=== PATIENT | female | born 1940 | race Caucasian/White ===

== ENCOUNTER 2017-01-10 13:36 | Emergency (ER) | payer MEDICARE ==
[2017-01-10 13:43] VITALS: O2SAT 97
--- NOTE | 2017-01-10 14:00 | ERPHSYRPT ---
- History of Present Illness Time Seen by Provider: 01/10/17 13:37 Source: patient Exam Limitations: clinical condition Patient Subjective Stated Complaint: ems states pt was found in her apartment feeling weak. Home Health concerned pt unable to take care of herself. Triage Nursing Assessment: pt pink, warm, dry. pt unkept. pt alert and oriented x3. hand garageman nad foot pushes equal and strong. Physician History: Pt. seen by home health nurse who called ambulance due to weakness and unable to ambulate. Denies any chest, abdominal or back pain. Denies any recent illnesses, no fever, chills, cough, no vomiting or diarrhea. States eating and drinking OK but accuchek done by EMS was >220. States walked with walker yesterday but unable to today. States PMD took her off Lasix due to "kidney problems" and now noticed increased pedal edema. Timing/Duration: today Severity: moderate Modifying Factors: Improves With: movement (WORSENS), rest (IMPROVES) Associated Symptoms: denies symptoms Allergies/Adverse Reactions: Sulfa (Sulfonamide Antibiotics) [Sulfa(Sulfonamide Antibiotics)] Allergy (Mild, Verified 07/16/16 16:10) Rash Home Medications: Aspirin [Aspirin EC] 81 mg PO DAILY 04/08/15 [History] Furosemide [Lasix] 40 mg PO DAILY 04/08/15 [History] Magnesium Oxide 400 mg [Mag-Ox 400] 400 mg PO DAILY 04/08/15 [History] Potassium Chloride 10 Meq Tab* [Klor Con 10 MEQ] 10 meq PO DAILY 04/08/15 [ History] Duloxetine HCl 30 mg [Cymbalta 30 MG Capsule] 60 mg PO DAILY 08/08/15 [ History] Aripiprazole 10 mg [Abilify 10 MG] 10 mg PO DAILY 07/16/16 [History] Insulin Aspart [Novolog Flexpen] 1 unit SQ UD 07/16/16 [History] Insulin Glargine [Lantus Insulin] 20 unit SQ HS 07/16/16 [History] Lisinopril 40 mg PO DAILY 07/16/16 [History] Simvastatin 20 mg PO DAILY 07/16/16 [History] Trazodone HCl 100 mg PO HS 07/16/16 [History] Hx Tetanus, Diphtheria Vaccination/Date Given: Yes (unknown) Hx Influenza Vaccination/Date Given: No Hx Pneumococcal Vaccination/Date Given: No Immunizations Up to Date: Yes - Review of Systems Constitutional: No Fever, No Chills Eyes: No Symptoms Ears, Nose, & Throat: No Symptoms Respiratory: No Cough, No Dyspnea Cardiac: Edema, No Chest Pain, No Palpitations, No Syncope Abdominal/Gastrointestinal: No Abdominal Pain, No Nausea, No Vomiting, No Diarrhea Genitourinary Symptoms: No Dysuria Musculoskeletal: No Back Pain, No Neck Pain Skin: No Rash Neurological: No Dizziness, No Focal Weakness, No Sensory Changes Psychological: No Symptoms Endocrine: No Symptoms All Other Systems: Reviewed and Negative - Past Medical History Pertinent Past Medical History: Yes Neurological History: Stroke, Other ENT History: Cataracts Cardiac History: High Cholesterol, Hypertension, Other Respiratory History: No Pertinent History Endocrine Medical History: Diabetes Type II Musculoskeletal History: Arthritis GI Medical History: No Pertinent History, Other History: Renal Disease Psycho-Social History: Depression Female Reproductive Disorders: No Pertinent History Other Medical History: 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,mild confusion x 1week, pacer,diarrhea x 3 wks, chronic kidney failure, - Past Surgical History Past Surgical History: Yes Cardiac: Cardiac Catheterization, Pacemaker Gastrointestinal: Appendectomy, Cholecystectomy, Colon Resection Musculoskeletal: Joint Replacement, Orthopedic Surgery Other Surgical History: BILATERAL KNEE REPLACE, LEFT HIP REPLACE , COLOSTOMY PLACED AND REVERSED, carpal tunnel - Social History Smoking Status: Current every day smoker How long have you smoked: 60 Exposure to second hand smoke: No Drug Use: none Patient Lives Alone: No - Female History Hx Now: No - Nursing Vital Signs Nursing Vital Signs: Initial Vital Signs Temperature 99.1 F Temperature Source Oral Pulse Rate 78 Respiratory Rate 20 Blood Pressure [] 136/75 Pain Intensity 0 - Physical Exam General Appearance: no apparent distress, alert Eye Exam: PERRL/EOMI, eyes nml inspection Ears, Nose, Throat Exam: normal ENT inspection, TMs normal, pharynx normal, moist mucous membranes Neck Exam: normal inspection, non-tender, supple, full range of motion Respiratory Exam: normal breath sounds, lungs clear, No respiratory distress Cardiovascular Exam: regular rate/rhythm, normal heart sounds, normal peripheral pulses Gastrointestinal/Abdomen Exam: soft, normal bowel sounds, No tenderness, No mass Back Exam: normal inspection, normal range of motion, No CVA tenderness, No vertebral tenderness Extremity Exam: normal range of motion, pelvis stable, pedal edema (+2-3 NON- PITTING EDEMA) Neurologic Exam: alert, oriented x 3, cooperative, secondary school special ed teacher II-XII nml as tested, normal mood/affect, nml cerebellar function, sensation nml, No motor deficits Skin Exam: normal color, warm, dry, No rash Lymphatic Exam: No adenopathy SpO2: 97 Oxygen Delivery: Room Air - Course Nursing assessment & vital signs reviewed: Yes EKG Interpreted by Me: RATE (65), Sinus Rhythm, NORMAL AXIS, NORMAL INTERVALS, Non-specific ST Changes - Radiology Exams Chest X-ray Interpretation: Teleradiologist Report Ordered Tests: Active Orders 24 hr Category Date Time Status Cath [Catheter-[place]] STAT Care 01/10/17 15:30 Active Cath for Specimen-Straight STAT Care 01/10/17 14:01 Active EKG-ER Only STAT Care 01/10/17 14:01 Active IV Insertion STAT Care 01/10/17 14:01 Active CHEST 1 VIEW (PORTABLE) Stat Exams 01/10/17 14:02 Completed BNP [NT PRO BNP] Stat Lab 01/10/17 13:45 Completed CBC W DIFF Stat Lab 01/10/17 13:45 Completed CMP Stat Lab 01/10/17 13:45 Completed TROPONIN Stat Lab 01/10/17 13:45 Completed TROPONIN Stat Lab 01/10/17 16:06 Ordered UA W/ MICROSCOPIC Stat Lab 01/10/17 13:45 Completed Medication Summary Discontinued Medications Generic Name Dose Route Start Last Admin Trade Name Dylanq PRN Reason Stop Dose Admin Furosemide 40 mg 01/10/17 15:13 01/10/17 15:29 Lasix 40 Mg/4 Ml IV 01/10/17 15:14 40 mg STAT ONE Administration Furosemide Confirm 01/10/17 15:21 Lasix 40 Mg/4 Ml Administered 01/10/17 15:22 Dose 40 mg .ROUTE .STK-MED ONE Lab/Rad Data: Laboratory Result Diagrams 01/10/17 13:45 01/10/17 13:45 Laboratory Results 01/10/17 01/10/17 01/10/17 Range/Units 13:45 13:45 13:45 WBC (4.0-10.5) K/mm3 RBC (4.1-5.4) M/mm3 Hgb (12.0-16.0) gm/dl Hct (35-47) % MCV (78-100) fl MCH (26-32) pg MCHC (32-36) g/dl RDW (11.5-14.0) % Plt Count (150-450) K/mm3 MPV (6-9.5) fl Gran % (36.0-66.0) % Lymphocytes % (24.0-44.0) % Monocytes % (0.0-12.0) % Eosinophils % (0.00-5.0) % Basophils % (0.0-0.4) % Basophils # (0-0.4) Sodium 144 (136-145) mEq/L Potassium 3.9 (3.5-5.1) mEq/L Chloride 108 H (98-107) mEq/L Carbon Dioxide 18.2 L (21-32) mEq/L Anion Gap 21.5 H (5-15) MEQ/L BUN 34 H (9-20) mg/dL Creatinine 2.26 H (0.55-1.30) mg/dl Estimated GFR 22 ML/MIN Glucose 227 H (70-110) MG/DL Calcium 9.5 (8.5-10.1) mg/dL Total Bilirubin 0.9 (0.2-1.0) mg/dL AST 79 H (15-37) U/L ALT 36 (12-78) U/L Alkaline Phosphatase 57 (46-116) U/L Troponin I 0.064 H* (0.000-0.056) ng/ml NT-Pro-B Natriuret Pep 1252 H (0-450) pg/ml Serum Total Protein 7.7 (6.4-8.2) gm/dL Albumin 4.2 (3.4-5.0) g/dL Ur Collection Type CATH Urine Color YELLOW (YELLOW) Urine Appearance CLEAR (CLEAR) Urine pH 5.5 (5-6) Ur Specific [place] 1.025 (1.005-1.025) Urine Protein 100 (Negative) Urine Glucose (UA) NEGATIVE (NEGATIVE) mg/dL Urine Ketones TRACE (NEGATIVE) Urine Nitrite NEGATIVE (NEGATIVE) Urine Bilirubin SMALL (NEGATIVE) Urine Urobilinogen 0.2 (0-1) mg/dL Urine WBC (Auto) NEGATIVE (NEGATIVE) Urine RBC (Auto) LARGE (0-5) [place]/ul Urine Microscopic RBC 2-5 (0-2) /HPF Urine Microscopic WBC 2-5 (0-5) /HPF Ur Epithelial Cells FEW (FEW) /HPF Amorphous Crystals MODERATE (NEGATIVE) /HPF Urine Bacteria FEW (NEGATIVE) /HPF Hyaline Casts 5-10 (0-2) /LPF Urine Yeast RARE (NEGATIVE) /HPF Specimen Received 01-10-17 1450 01/10/17 Range/Units 13:45 WBC 11.5 H (4.0-10.5) K/mm3 RBC 4.37 (4.1-5.4) M/mm3 Hgb 13.2 (12.0-16.0) gm/dl Hct 40.5 (35-47) % MCV 92.7 (78-100) fl MCH 30.2 (26-32) pg MCHC 32.6 (32-36) g/dl RDW 15.1 H (11.5-14.0) % Plt Count 266 (150-450) K/mm3 MPV 11.4 H (6-9.5) fl Gran % 86.7 H (36.0-66.0) % Lymphocytes % 6.0 L (24.0-44.0) % Monocytes % 7.0 (0.0-12.0) % Eosinophils % 0.1 (0.00-5.0) % Basophils % 0.2 (0.0-0.4) % Basophils # 0.02 (0-0.4) Sodium (136-145) mEq/L Potassium (3.5-5.1) mEq/L Chloride (98-107) mEq/L Carbon Dioxide (21-32) mEq/L Anion Gap (5-15) MEQ/L BUN (9-20) mg/dL Creatinine (0.55-1.30) mg/dl Estimated GFR ML/MIN Glucose (70-110) MG/DL Calcium (8.5-10.1) mg/dL Total Bilirubin (0.2-1.0) mg/dL AST (15-37) U/L ALT (12-78) U/L Alkaline Phosphatase (46-116) U/L Troponin I (0.000-0.056) ng/ml NT-Pro-B Natriuret Pep (0-450) pg/ml Serum Total Protein (6.4-8.2) gm/dL Albumin (3.4-5.0) g/dL Ur Collection Type Urine Color (YELLOW) Urine Appearance (CLEAR) Urine pH (5-6) Ur Specific [place] (1.005-1.025) Urine Protein (Negative) Urine Glucose (UA) (NEGATIVE) mg/dL Urine Ketones (NEGATIVE) Urine Nitrite (NEGATIVE) Urine Bilirubin (NEGATIVE) Urine Urobilinogen (0-1) mg/dL Urine WBC (Auto) (NEGATIVE) Urine RBC (Auto) (0-5) Cedrick/ul Urine Microscopic RBC (0-2) /HPF Urine Microscopic WBC (0-5) /HPF Ur Epithelial Cells (FEW) /HPF Amorphous Crystals (NEGATIVE) /HPF Urine Bacteria (NEGATIVE) /HPF Hyaline Casts (0-2) /LPF Urine Yeast (NEGATIVE) /HPF Specimen Received - Progress Progress: improved Progress Note: 01/10/17 15:43 PT GIVEN LASIX 40MG WITH MIN UO. STATES FEELS BETTER THOUGH Discussed with Dr.: Other (DR GUTIERREZ, [employer]BILE HOME SET UP PERSON, AGREED TO ACCEPT PT) Counseled pt/family regarding: lab results, diagnosis, rad results - Departure Time of Disposition: 16:21 Departure Disposition: Transfer ([facility]) Clinical Impression: Pedal edema, Weakness Condition: Stable Critical Care Time: No
--- NOTE | 2017-01-10 14:29 | XRAY ---
Indication: Short of breath. Comparison: July 16, 2016. Portable chest remains clear. Heart is not enlarged and again demonstrates left-sided dual-lead pacemaker. Vascularity normal. Bony thorax intact again with osteopenia and degenerative changes. Impression: Stable nonacute chest with chronic features.
[2017-01-10 14:45] LABS: BASOPHIL % 0.2 % (0.0-0.4); Eosinophil % 0.1 % (0.00-5.0); Granulocytes % 86.7 % (36.0-66.0); Mean Cell Volume 92.7 fl (78-100); Mean Corpuscular Hemoglobin 30.2 pg (26-32); Mean Platelet Volume 11.4 fl (6-9.5); Platelet Count 266 K/mm3 (150-450); Red Blood Count 4.37 M/mm3 (4.1-5.4); Red Cell Distribution Width 15.1 % (11.5-14.0); White Blood Count 11.5 K/mm3 (4.0-10.5)
[2017-01-10 14:57] LABS: Collection Type CATH; Ph 5.5 (5-6)
[2017-01-10 14:58] LABS: Bacteria FEW /HPF (NEGATIVE); COMPLETE URINE MICROSCOPIC? YES; Epithelial Cells FEW /HPF (FEW); Yeast RARE /HPF (NEGATIVE)
[2017-01-10] MEDS ORDERED: Lasix 40 MG/4 ML IV ONE (15:13)
[2017-01-10 15:14] LABS: ALBUMIN 4.2 g/dL (3.4-5.0); ANION GAP 21.5 MEQ/L (5-15); BILIRUBIN,TOTAL 0.9 mg/dL (0.2-1.0); Carbon Dioxide 18.2 mEq/L (21-32); Potassium 3.9 mEq/L (3.5-5.1); Total Protein 7.7 gm/dL (6.4-8.2)
[2017-01-10 15:16] LABS: TROPONIN 0.064 ng/ml (0.000-0.056)
[2017-01-10] MEDS ORDERED: Lasix 40 MG/4 ML ONE (15:21)
[2017-01-10 17:11] VITALS: BP 124/71; PULSE 63
== END 2017-01-10 17:12 | disposition short-term general hospital (02) ==
LOC: ED 13:36
DX: R60.9 Edema, unspecified (principal); R79.89 Other specified abnormal findings of blood chemistry; R53.1 Weakness; I10 Essential (primary) hypertension; E78.00 Pure hypercholesterolemia, unspecified; E11.9 Type 2 diabetes mellitus without complications; Z79.4 Long term (current) use of insulin; Z79.899 Other long term (current) drug therapy
CPT/HCPCS: 93041; 96374; 99285; 36000; 51702; 93005; 81000; 36415; 83880; 85025; 80053; 84484; 71010; P9612; J1940

== ENCOUNTER 2017-06-08 14:06 | Emergency (ER) | payer MEDICARE ==
--- NOTE | 2017-06-08 14:59 | ERPHSYRPT ---
- History of Present Illness Time Seen by Provider: 06/08/17 14:53 Historian: patient Exam Limitations: no limitations Patient Subjective Stated Complaint: Pt states "I was eating and I got a sudden horrible pain in my lower abdomen. I have had this swelling in my lower abdomen for quite some time now." Triage Nursing Assessment: PT alert and oriented X 3, skin pwd. Pt has softball size mass in lower left quadrant, bowel sounds present in all quadrants. Pt able to speak in full clear sentences, ambulates with assistance. Physician History: Pt states "I was eating and I got a sudden horrible pain in my lower abdomen. I have had this swelling in my lower abdomen for quite some time now." 77-year-old female had a history of colostomy reversal had a swelling on her left lower quadrant few years, today she started having a pain in that after eating her lunch so she came to the emergency room.denies any other symptoms. pain is relieved when patient was in emergency room. Timing/Duration: today Activities at Onset: none Abdominal Pain Onset Location: LLQ Pain Radiation: no radiation Severity of Pain-Max: mild Severity of Pain-Current: none Modifying Factors: Improves With: nothing Associated Symptoms: denies symptoms Allergies/Adverse Reactions: Sulfa (Sulfonamide Antibiotics) [Sulfa(Sulfonamide Antibiotics)] Allergy (Mild, Verified 01/10/17 16:42) Rash Home Medications: Aspirin [Aspirin EC] 81 mg PO DAILY 04/08/15 [History] Magnesium Oxide 400 mg [Mag-Ox 400] 400 mg PO DAILY 04/08/15 [History] Duloxetine HCl 30 mg [Cymbalta 30 MG Capsule] 60 mg PO DAILY 08/08/15 [ History] Simvastatin 20 mg PO DAILY 07/16/16 [History] Insulin Glargine,Hum.rec.anlog [Lantus Solostar] 10 unit SQ QID 01/10/17 [ History] Lisinopril 40 mg PO DAILY 06/08/17 [History] Hx Tetanus, Diphtheria Vaccination/Date Given: No Hx Influenza Vaccination/Date Given: Yes Hx Pneumococcal Vaccination/Date Given: Yes Immunizations Up to Date: Yes - Review of Systems Constitutional: No Symptoms Eyes: No Symptoms Ears, Nose, & Throat: No Symptoms Respiratory: No Symptoms Cardiac: No Symptoms Abdominal/Gastrointestinal: Abdominal Pain Genitourinary Symptoms: No Symptoms Musculoskeletal: No Symptoms - Past Medical History Pertinent Past Medical History: Yes Neurological History: Stroke, Other ENT History: Cataracts Cardiac History: High Cholesterol, Hypertension, Other Respiratory History: No Pertinent History Endocrine Medical History: Diabetes Type II Musculoskeletal History: Arthritis GI Medical History: No Pertinent History, Other History: Renal Disease Psycho-Social History: Depression Female Reproductive Disorders: No Pertinent History Other Medical History: 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,mild confusion x 1week, pacer,diarrhea x 3 wks, chronic kidney failure, - Past Surgical History Past Surgical History: Yes Cardiac: Cardiac Catheterization, Pacemaker Gastrointestinal: Appendectomy, Cholecystectomy, Colon Resection Musculoskeletal: Joint Replacement, Orthopedic Surgery Other Surgical History: BILATERAL KNEE REPLACE, LEFT HIP REPLACE , COLOSTOMY PLACED AND REVERSED, carpal tunnel - Social History Smoking Status: Former smoker How long have you smoked: 60 Exposure to second hand smoke: No Drug Use: none Patient Lives Alone: No - Female History Hx Last Menstrual Period: no more Hx Now: No - Nursing Vital Signs Nursing Vital Signs: Initial Vital Signs Temperature 98.1 F 06/08/17 14:14 Pulse Rate 62 06/08/17 14:14 Respiratory Rate 16 06/08/17 14:14 Blood Pressure 155/91 06/08/17 14:14 O2 Sat by Pulse Oximetry 97 06/08/17 14:14 Pain Scale Pain Intensity 0 - Physical Exam General Appearance: no apparent distress, alert Eye Exam: PERRL/EOMI, eyes nml inspection Ears, Nose, Throat Exam: normal ENT inspection, pharynx normal, moist mucous membranes Neck Exam: normal inspection, non-tender, supple, full range of motion Respiratory Exam: normal breath sounds, lungs clear, No respiratory distress Cardiovascular Exam: regular rate/rhythm, normal heart sounds Gastrointestinal/Abdomen Exam: soft, normal bowel sounds, other (left lower quadrant ventral abdominal wall hernia), No tenderness, No mass Back Exam: normal inspection, normal range of motion, No CVA tenderness, No vertebral tenderness Extremity Exam: normal inspection, normal range of motion, pelvis stable Neurologic Exam: alert, oriented x 3, cooperative, normal mood/affect, nml cerebellar function, sensation nml, No motor deficits Skin Exam: normal color, warm, dry SpO2: 97 Oxygen Delivery: Room Air - Course Nursing assessment & vital signs reviewed: Yes - Radiology Exams Abdomen X-ray Interpretation: Reviewed by me, Negative Ordered Tests: Active Orders 24 hr Category Date Time Status OBSTR/ACUTE ABDOMEN SERIES Stat Exams 06/08/17 14:48 Ordered - Progress Progress: improved Counseled pt/family regarding: diagnosis, need for follow-up, rad results - Departure Time of Disposition: 14:59 Departure Disposition: Home Clinical Impression: Hernia of anterior abdominal wall Condition: Stable Critical Care Time: No Referrals: ANGELA MAK [Primary Care Provider] - Instructions: Abdominal Pain-Adult Additional Instructions: You have a hernia in your abdominal wall, which may require surgical intervention, can be scheduled as an outpatient by your primary care physician. Please tell your long-term nursing personnel to make an arrangements with your primary care physician for an appointment with surgeon for hernia repair. Try to consume high-fiber diet without seeds to prevent further more pain symptoms.
[2017-06-08 16:16] VITALS: BP 124/60; PULSE 67; O2SAT 97
--- NOTE | 2017-06-08 20:49 | XRAY ---
Indication: Left abdominal swelling for 2 weeks. Left lower quadrant pain. Comparison: Portable chest January 10, 2017. 2 views of the abdomen demonstrates mild/moderate air distended bowel loops without air fluid leveling and moderate scattered colonic fecal debris. Findings obscure solid organs. Cholecystectomy clips. No free air. Osseous structures intact with mild osteopenia, spinal degenerative changes, and left total hip arthroplasty. Single AP chest again demonstrates normal heart and lungs with left-sided dual-lead pacemaker. Bony thorax intact again with osteopenia and degenerative changes. Impression: 1. Air distended bowel loops with diffuse fecal debris. Rule out ileus versus fecal stasis/impaction. 2. Stable nonacute 1 the chest.
== END 2017-06-08 16:15 | disposition home or self-care (01) ==
LOC: ED 14:06
DX: K43.9 Ventral hernia without obstruction or gangrene (principal)
CPT/HCPCS: 74022; 96360; 99283; 99284

== ENCOUNTER 2017-07-22 10:11 | Day surgery (SDC) | payer MEDICARE ==
--- NOTE | 2017-07-22 08:26 | HP ---
DATE OF SURGERY: 07/22/2017 HISTORY OF PRESENT ILLNESS: The patient is a 77 year-old who has history of ventral hernia. She has history of ostomy for labial, gluteal and perineal infection in the past. She had it taken down by Dr. May Culp in the past back in 2012. She had some aches, pains at hernia site. She had been having bowel movements. She had a CT scan left lower quadrant ventral hernia with some small bowel herniation, small hiatal hernia. Question whether she had volvulus. It sounds like she had a [id number] anastomosis when she had her resection in the past. She is in need of follow up colonoscopy first as she has not had one recently to rule out other etiologies of this area prior to proceeding with hernia repair and decide if she needs any intervention regarding her colon versus resection reanastomosis versus just repair of her hernia. PAST MEDICAL HISTORY: Diabetes mellitus type 2, hypercholesterolemia, hypertension, history of depression. She had perineal wound in the past and had diverting ostomy and later taken down where the ostomy was done in [place]. She had ostomy taken down by Dr. May Culp in the past at [facility]. MEDICATIONS: MiraLAX, loperamide, insulin, Milk of Magnesia, potassium chloride, Simvastatin, Wellbutrin, Zestril, aspirin, duloxetine, Furosemide, acetaminophen PRN. ALLERGIES: SULFA. FAMILY HISTORY: Negative regards to this problem. SOCIAL HISTORY: No smoking or alcohol abuse currently. REVIEW OF SYSTEMS: Twelve systems reviewed per admission assessment pertinent for as noted above. PHYSICAL EXAMINATION: GENERAL: No acute distress. HEENT: Sclerae nonicteric. NECK: No JVD. CHEST: Equal excursion, nonlabored breathing. CVS: Regular rate and rhythm. ABDOMEN: Soft. She had a hernia in the left abdomen prior stomal site otherwise no peritoneal signs. EXTREMITIES: No significant edema. NEURO: Alert, moving extremities symmetrically. No gross motor deficits noted. IMPRESSION: History of [id number] anastomosis. There is question whether volvulus although she is having bowel movements, not having evidence of obstruction. I feel she needs colonoscopy prior to considering hernia repair and possibly whether she needs any part of the colon removed in the future as she had the [id number] anastomosis in the past. General risk of bowel prep, risk of sedation, risk of bowel injury or perforation possibly requiring open procedure, risk of ongoing morbidity, risk of missed or nondiagnosis or incomplete exam possibly requiring barium enema, other studies or procedures, general risk of anesthesia or sedation, aches or pains but not limited to. She understands all the above but not limited to, will proceed with outpatient colonoscopy under MAC anesthesia at a later date, will proceed with hernia repair possible partial colectomy.
[2017-07-22] MEDS ORDERED: DIPRIVAN 200 MG/20 ML IV ONE (10:12)
[2017-07-22] MEDS ORDERED: Lactated Ringers 1,000 ML IV SCH (10:30)
[2017-07-22 14:51] VITALS: BP 159/91; PULSE 83; O2SAT 100
--- NOTE | 2017-07-22 15:43 | OP ---
SURGERY DATE/TIME: 07/22/2017 1329 PREOPERATIVE DIAGNOSES: 1) History of incarcerated left abdominal wall hernia, prior stomal takedown site. 2) Question of partial volvulus on CT scan. 3) Need for colonoscopy prior to repairing hernia and deciding whether to do partial colectomy or not. POSTOPERATIVE DIAGNOSES: 1) No active volvulus currently. 2) Very large patulous side to side distal left colon area anastomosis. 3) Diverticulosis. 4) Small internal and external hemorrhoids. 5) Small raised lesion versus hyperplastic lesion rectum. 6) Area of poor bowel prep limiting the exam. PROCEDURES: Colonoscopy. SURGEON: Dr. Ke Govea. ANESTHESIA: MAC. ESTIMATED BLOOD LOSS: Minimal. INDICATIONS: As noted above. Risks and benefits explained in detail but not limited to and consent obtained. DESCRIPTION OF PROCEDURE AND FINDINGS: The patient is taken to the operating room. MAC anesthesia introduced. After official time out and no disagreement with planned procedure, digital rectal exam did not reveal any rectal masses. She did have some small internal and external hemorrhoids. Video colonoscope inserted and passed up the rectum and to a very large, widely patent [id number] anastomosis from prior ostomy takedown. This area is quite patulous. There is no active volvulus at this point but given the very patulous anastomosis could happen in the future. The scope was able to be passed up through this around the descending colon, transverse colon to the cecum right lower quadrant. Prep was very poor with a large amount of liquidy semisolid stool very much limited the exam for small lesions. On withdrawal of the scope she had diverticulosis. There were no signs of any large polyps, masses or obstructing lesions. Again very poor prep limited the exam for small lesions. The scope pulled back to anastomotic area. It was decompressed as well as possible. At the top of the rectum small raised lesion versus hyperplastic lesion removed with hot biopsy forceps, good hemostasis noted. She had small internal and external hemorrhoids. The patient tolerated procedure well. There was no family available to discuss the findings with.
== END 2017-07-22 16:33 | disposition home or self-care (01) ==
LOC: SDC 10:11
PROVIDERS: ATTEND Surgery
PROC: 0DBP8ZX Excision of Rectum, Via Natural or Artificial Opening Endoscopic, Diagnostic (ICD-10-PCS; principal; 2017-07-22)
DX: K57.30 Diverticulosis of large intestine without perforation or abscess without bleeding (principal); K62.9 Disease of anus and rectum, unspecified; K64.4 Residual hemorrhoidal skin tags; K64.8 Other hemorrhoids; E11.9 Type 2 diabetes mellitus without complications; E78.00 Pure hypercholesterolemia, unspecified; I10 Essential (primary) hypertension; Z79.899 Other long term (current) drug therapy
CPT/HCPCS: 00810; 99100; J2704; L0625

== ENCOUNTER 2020-03-19 12:12 | Inpatient (IN) | payer MEDICARE ==
--- NOTE | 2020-03-19 18:57 | PCM.HP ---
History of Present Illness - Chief Complaint Chief Complaint: New onset of seizure today History of Present Illness: is a 80 year old female. [facility]ed developing [facility] at [facility]. Patient was seen in ER today and all the work-up was negative so patient was [facility] the [facility] where she developed another seizure and so patient was admitted second time as a direct admit. Patient is alert awake denies any other symptoms. - Review of Systems Constitutional: No Fever, No Chills Eyes: No Symptoms Ears, Nose, & Throat: No Symptoms Respiratory: No Cough, No Short Of Breath Cardiac: No Chest Pain, No Edema, No Syncope Abdominal/Gastrointestinal: No Abdominal Pain, No Nausea, No Vomiting, No Diarrhea Genitourinary Symptoms: No Dysuria Musculoskeletal: No Back Pain, No Neck Pain Skin: No Rash Neurological: Seizure, No Dizziness, No Focal Weakness, No Sensory Changes Psychological: No Symptoms Endocrine: No Symptoms Hematologic/Lymphatic: No Symptoms Immunological/Allergic: No Symptoms Medications & Allergies Home Medications: Home Medication List Magnesium Oxide 400 mg [Mag-Ox 400] 400 mg PO DAILY 04/08/15 [History Confirmed 03/19/20] Simvastatin 20 mg PO DAILY 07/16/16 [History Confirmed 03/19/20] Lisinopril 40 mg PO DAILY 06/08/17 [History Confirmed 03/19/20] Acetaminophen 325 mg [Tylenol 325 mg] 650 mg PO Q4H PRN PRN 07/16/17 [History Confirmed 03/19/20] Loperamide HCl 2 mg [Imodium 2 mg] 2 mg PO DAILY 07/16/17 [History Confirmed 03/19/20] Magnesium Hydroxide 30 ml [Milk of Magnesia 30 ml] 30 ml PO BID PRN 07/16/17 [History Confirmed 03/19/20] Polyethylene Glycol 3350 [Glycolax] 17 gm PO BID 07/16/17 [History Confirmed 03/19/20] Potassium Chloride 10 Meq Tab* [Klor Con 10 MEQ] 10 meq PO DAILY 07/16/17 [History Confirmed 03/19/20] Sodium Phosphate,[place]-Dibasic [Enema] 266 ml RC DAILY 07/16/17 [History Confirmed 03/19/20] Aspirin [Aspirin EC] 81 mg PO DAILY #0 11/27/17 [Rx Confirmed 03/19/20] Allergies/Adverse Reactions: Allergies Allergy/AdvReac Type Severity Reaction Status Date / Time Sulfa (Sulfonamide Allergy Mild Rash Verified 03/19/20 16:31 Antibiotics) [Sulfa(Sulfonamide Antibiotics)] - Past Medical History Past Medical History: Yes Neurological History: Alzheimer's Disease, Stroke, Other ENT History: Cataracts Cardiac History: High Cholesterol, Hypertension, Other Respiratory History: No Pertinent History Endocrine Medical History: Diabetes Type II Musculoskelatal History: Arthritis GI Medical History: No Pertinent History, Other History: Renal Disease Pyscho-Social History: Depression Reproductive Disorders: No Pertinent History Comment: 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, pacer,diarrhea x 3 wks, chronic kidney failure, - Past Surgical History Past Surgical History: Yes Neuro Surgical History: No Pertinent History Cardiac History: Cardiac Catheterization, Pacemaker Respiratory Surgery: No Pertinent History GI Surgical History: Appendectomy, Cholecystectomy, Colon Resection Genitourinary Surgical Hx: No Pertinent History Musculskeletal Surgical Hx: Joint Replacement, Orthopedic Surgery Female Surgical History: No Pertinent History Other Surgical History: BILATERAL KNEE REPLACE, LEFT HIP REPLACE , COLOSTOMY PLACED AND REVERSED, carpal tunnel - Social History Smoking Status: Former smoker How long have you smoked: 60 Exposure to second hand smoke: No Alcohol: None Drug Use: none - Physical Exam General Appearance: no apparent distress, alert Neurologic Exam: alert, oriented x 3, cooperative, normal mood/affect, nml cerebellar function, nml station & gait, sensation nml, No motor deficits, No sensory deficit, No disoriented, No confusion Eye Exam: PERRL/EOMI, eyes nml inspection Ears, Nose, Throat Exam: normal ENT inspection, TMs normal, pharynx normal, moist mucous membranes Neck Exam: normal inspection, non-tender, supple, full range of motion Respiratory Exam: normal breath sounds, lungs clear, No respiratory distress Cardiovascular Exam: regular rate/rhythm, normal heart sounds, normal peripheral pulses Gastrointestinal/Abdomen Exam: soft, normal bowel sounds, No tenderness, No mass Back Exam: normal inspection, normal range of motion, No CVA tenderness, No vertebral tenderness Extremity Exam: normal inspection, normal range of motion, pelvis stable Skin Exam: normal color, warm, dry, No rash Lymphatic Exam: No adenopathy Results - Other Procedures and Tests Respiratory Therapy 03/19/20 18:53 EEG 41-60 Minutes (Normal) ONCE Assessment/Plan (1) Seizure as late effect of cerebrovascular accident (CVA) Current Visit: Yes Status: Acute Assessment & Plan: Allergies Sulfa (Sulfonamide Antibiotics) [Sulfa(Sulfonamide Antibiotics)] Allergy (Mild, Verified 03/19/20 16:31) Rash Active Medications Sodium Chloride (Sodium Chloride 0.9% 1000 Ml) 1,000 mls @ 100 mls/hr IV .Q10H PJ Stop: 04/18/20 18:59 Insulin Human Lispro (Humalog) 0 unit SQ UD PRN PRN Reason: HYPERGLYCEMIA Stop: 04/18/20 18:47 Levetiracetam (Keppra 250 Mg) 500 mg PO BID PJ Stop: 04/18/20 21:59 Orders 03/19/20 18:48 Up With Assistance TID Neuro Checks Q4H Place in Observation ROUTINE Insulin Lispro [Humalog] See Dose Instructions SQ UD PRN 03/19/20 18:49 Accucheck ACHS Telemetry PROTOCOL Pulse Oximetry ROUTINE 03/19/20 18:50 Miscellaneous Nursing Order ROUTINE 03/19/20 18:53 EEG 41-60 Minutes (Normal) ONCE 03/19/20 19:00 NaCl 0.9% 1000 ml - 100 ml/Hr NaCl 0.9% 1000 ml [Sodium Chloride 0.9% 1000 ML] 1,000 ml IV 100 mls/hr 03/19/20 22:00 Levetiracetam 250 MG [Keppra 250 MG] 500 mg PO BID 03/20/20 04:00 CBC W DIFF AM.LAB CMP AM.LAB Code(s): I69.398 - OTHER SEQUELAE OF CEREBRAL INFARCTION; R56.9 - UNSPECIFIED CONVULSIONS (2) Acute on chronic renal insufficiency Current Visit: No Status: Acute Code(s): N28.9 - DISORDER OF KIDNEY AND URETER, UNSPECIFIED; N18.9 - CHRONIC KIDNEY DISEASE, UNSPECIFIED
[2020-03-19] MEDS ORDERED: ULTRAM 50 MG PO PRN (20:46)
[2020-03-19] MEDS ORDERED: Wellbutrin SR 150 MG ONE (21:54)
[2020-03-19] MEDS ORDERED: Keppra 250 MG ONE (21:55)
[2020-03-19] MEDS ORDERED: Keppra 250 MG PO SCH (22:00)
[2020-03-19] MEDS: XARELTO 10 MG TABLET PO ONE ×2 (22:33→23:32)
[2020-03-19] MEDS: Seroquel 100 MG PO SCH (22:33)
[2020-03-19] MEDS: ZOCOR 20MG PO SCH (22:33)
[2020-03-19] MEDS: Zestril 10 MG PO SCH (22:33)
[2020-03-19] MEDS: Klor Con 10 MEQ PO SCH (22:35)
[2020-03-19] MEDS: HUMALOG SQ PRN (22:36)
[2020-03-19] MEDS: Lantus Insulin SQ SCH (22:36)
[2020-03-19] MEDS ORDERED: Ativan 2 MG/1 ML VIAL IV ONE ×2 (22:55)
[2020-03-19] MEDS ORDERED: Ativan 2 MG/1 ML VIAL IV STA (22:56)
[2020-03-19] MEDS ORDERED: Keppra 500 MG/5 ML*** 500 MG in D5w 100ML Mini Bag 100 ML 100 ML IV ONE (23:02)
[2020-03-19 23:04] LABS: A-aADO2 10; ABG HEMOGLOBIN 11.1; ABG POTASSIUM 4.8 (3.5-5.1); ARTERIAL BLD GAS O2 SATURATION 99.1 % (95-100); ARTERIAL BLOOD GAS FIO2 32 %; ARTERIAL BLOOD GAS PCO2 37 mmHg (35-45); ARTERIAL BLOOD GAS PO2 172 mmHg (75-100); ARTERIAL BLOOD GAS pH 7.36 (7.35-7.45); CARBOXYHEMOGLOBIN 5.7 % THgb (0.0-6.9); HCO3- 20.9 (22-28); HGB O2 SAT 92.1 g/dF (94-100); Methhemoglobin 1.3 % (1.4-1.5); paO2 pAO1 0.95
[2020-03-19 23:05] LABS: ABG SITE RIGHT BRACHIAL
[2020-03-19] MEDS ORDERED: D5w 100ML Mini Bag 100 ML 100 ML IV ONE (23:10)
[2020-03-19] MEDS ORDERED: Keppra 500 MG/5 ML ONE (23:10)
[2020-03-19] MEDS: Wellbutrin XL 150 MG PO SCH (23:31)
[2020-03-19] MEDS ORDERED: Ativan 2 MG/1 ML VIAL IV PRN (23:33)
[2020-03-20] MEDS ORDERED: D5w 100ML Mini Bag 100 ML 100 ML IV ONE (04:22)
[2020-03-20 05:00] LABS: Absolute Neutrophil Ct (ANC) 4.17 (1.4-6.9); BASOPHIL % 0.2 % (0.0-0.4); Basophil (Absolute #) 0.01 (0-0.4); Eosinophil % 2.2 % (0.00-5.0); Eosinophil (Absolute #) 0.13 (0-0.5); Hematocrit 30.1 % (35-47); Hemoglobin 9.2 gm/dl (12.0-16.0); Lymphocyte (Absolute #) 1.22 (1.0-4.6); Lymphocytes % 20.2 % (24.0-44.0); Mean Cell Volume 97.4 fl (78-100); Mean Corpuscular Hemoglobin 29.8 pg (26-32); Mean Corpuscular Hgb Concent. 30.6 g/dl (32-36); Monocyte (Absolute #) 0.51 (0.0-1.3); Monocytes % 8.4 % (0.0-12.0); Platelet Count 159 K/mm3 (150-450); Red Blood Count 3.09 M/mm3 (4.1-5.4); Red Cell Distribution Width 15.2 % (11.5-14.0)
[2020-03-20] MEDS ORDERED: Keppra 500 MG/5 ML*** 500 MG in D5w 100ML Mini Bag 100 ML 100 ML IV ONE (05:20)
[2020-03-20 05:29] LABS: ALBUMIN 3.2 g/dL (3.5-5.0); ANION GAP 10.6 MEQ/L (5-15); BILIRUBIN,TOTAL 0.5 mg/dL (0.2-1.3); Calcium 8.1 mg/dL (8.4-10.2); Potassium 4.5 mmol/L (3.5-5.1); Total Protein 5.7 g/dL (6.3-8.2)
[2020-03-20] MEDS ORDERED: Sodium Chloride 0.9% 1000 ML 1,000 ML ONE (07:32)
[2020-03-20] MEDS: Sodium Chloride 0.9% 1000 ML 1,000 ML IV SCH ×3 (07:45→16:11)
[2020-03-20] MEDS ORDERED: GAVILAX PO PRN (08:27)
[2020-03-20] MEDS ORDERED: TYLENOL 325 MG PO PRN (08:27)
[2020-03-20] MEDS ORDERED: MILK OF MAGNESIA 30 ML PO SCH (08:30)
[2020-03-20] MEDS ORDERED: Miralax Powder 17GM PACKET PO PRN (08:32)
[2020-03-20] MEDS: Klor Con 10 MEQ PO SCH (09:47)
[2020-03-20] MEDS: Keppra 250 MG PO SCH (09:47)
[2020-03-20] MEDS: ECOTRIN 81 MG PO SCH (09:47)
[2020-03-20] MEDS: MAG-OX 400 PO SCH (09:48)
[2020-03-20] MEDS: Lopressor 25MG Tab PO SCH (09:48)
[2020-03-20] MEDS: Wellbutrin XL 150 MG PO SCH (09:48)
[2020-03-20] MEDS: Lasix 40 MG PO SCH (09:48)
[2020-03-20] MEDS: Zestril 10 MG PO SCH (09:48)
[2020-03-20] MEDS: Keppra 500 MG/5 ML*** 1,000 MG in D5w 100ML Mini Bag 100 ML 100 ML IV SCH ×2 (10:48→21:53)
--- NOTE | 2020-03-20 12:13 | PCM.NOTE ---
Date and Time: 03/20/20 1212 Subjective Assessment: 80 yr old female seen and examined this am. Patient is post ictal. Patient is sleepy but arousable. She was agitated with answering questions. Patient denies pain anywhere - Review of Systems All Other Systems: Unable due to condition Objective Exam General Appearance: obese, other (sleepy) Neurologic Exam: confusion, agitation, No oriented x 3, No cooperative Skin Exam: normal color, warm, dry, No rash Eye Exam: PERRL Ears, Nose, Throat Exam: moist mucous membranes Neck Exam: normal inspection Respiratory Exam: normal breath sounds, lungs clear, No chest tenderness, No diminished breath sounds, No crackles/rales, No wheezing Cardiovascular Exam: regular rate/rhythm, normal heart sounds, No murmur, No friction rub, No gallop Gastrointestinal/Abdomen Exam: soft, normal bowel sounds, No tenderness, No distention, No mass, No guarding, No rebound Extremity Exam: normal inspection, No pedal edema, No swelling, No tenderness OBJECTIVE DATA Vital Signs: Vital Signs - 24 hr Temp Pulse Resp BP Pulse Ox 03/20/20 11:58 99 F 69 18 105/54 98 03/20/20 07:34 98.1 F 72 20 110/56 97 03/20/20 06:46 97 03/20/20 04:00 99.2 F 70 24 118/58 98 03/20/20 00:02 98.7 F 88 12 138/60 95 03/19/20 22:55 98.7 F 88 12 138/60 95 03/19/20 20:50 98.6 F 72 22 125/68 98 03/19/20 20:30 96 Oxygen-Last 24 hours Oxygen Flowrate (L/min)-RT 3 Oxygen Flowrate (L/min)-RT 3 Pain Assessment - Last Documented Pain Scale Used FLACC Intake and Output: Intake & Output 03/18/20 03/19/20 03/20/20 03/21/20 11:59 11:59 11:59 11:59 Intake Total 709 Output Total 160 Balance 549 Weight 101 kg Lab Results: Accuchecks Date 03/20/20 Date 03/20/20 Date 03/19/20 Time 11:53 Time 07:57 Time 21:00 Accucheck Value: 132 Accucheck Value: 206 Lab Results-Last 24 Hours 03/19/20 03/20/20 03/20/20 Range/Units 23:00 04:59 04:59 WBC 6.0 (4.0-10.5) K/mm3 RBC 3.09 L (4.1-5.4) M/mm3 Hgb 9.2 L (12.0-16.0) gm/dl Hct 30.1 L (35-47) % MCV 97.4 (78-100) fl MCH 29.8 (26-32) pg MCHC 30.6 L (32-36) g/dl RDW 15.2 H (11.5-14.0) % Plt Count 159 (150-450) K/mm3 MPV 11.0 (7.5-11.0) fl Gran % 69.0 H (36.0-66.0) % Eos # (Auto) 0.13 (0-0.5) Absolute Lymphs (auto) 1.22 (1.0-4.6) Absolute Monos (auto) 0.51 (0.0-1.3) Lymphocytes % 20.2 L (24.0-44.0) % Monocytes % 8.4 (0.0-12.0) % Eosinophils % 2.2 (0.00-5.0) % Basophils % 0.2 (0.0-0.4) % Absolute Granulocytes 4.17 (1.4-6.9) Basophils # 0.01 (0-0.4) Puncture Site RIGHT BRACHIAL pCO2 37 (35-45) mmHg pO2 172 H* (75-100) mmHg Base Excess -4.0 L (-2.0-2.0) O2 Saturation 92.1 L (94-100) g/dF ABG pH 7.36 (7.35-7.45) ABG HCO3 20.9 L (22-28) ABG O2 Sat (Measured) 99.1 (95-100) % Tevin Test NOT APPLICABLE A-a Gradient 10 a/A Ratio 0.95 Hemoglobin 11.1 Carboxyhemoglobin 5.7 (0.0-6.9) % THgb Methemoglobin 1.3 L (1.4-1.5) % Potassium 4.8 4.5 (3.5-5.1) Temperature 37.0 C POC O2 Flow Rate 32 % Sodium 138 (137-145) mmol/L Chloride 107 (98-107) mmol/L Carbon Dioxide 25 (22-30) mmol/L Anion Gap 10.6 (5-15) MEQ/L BUN 29 H (7-17) mg/dL Creatinine 2.00 H (0.52-1.04) mg/dL Estimated GFR 25.4 ML/MIN Glucose 158 H (74-106) mg/dL Hemoglobin A1c (4.5-6.0) % Calcium 8.1 L (8.4-10.2) mg/dL Magnesium (1.6-2.3) mg/dL Total Bilirubin 0.50 (0.2-1.3) mg/dL AST 18 (14-36) U/L ALT 11 (0-35) U/L Alkaline Phosphatase 53 (38-126) U/L Serum Total Protein 5.7 L (6.3-8.2) g/dL Albumin 3.2 L (3.5-5.0) g/dL 03/20/20 03/20/20 Range/Units 04:59 09:38 WBC (4.0-10.5) K/mm3 RBC (4.1-5.4) M/mm3 Hgb (12.0-16.0) gm/dl Hct (35-47) % MCV (78-100) fl MCH (26-32) pg MCHC (32-36) g/dl RDW (11.5-14.0) % Plt Count (150-450) K/mm3 MPV (7.5-11.0) fl Gran % (36.0-66.0) % Eos # (Auto) (0-0.5) Absolute Lymphs (auto) (1.0-4.6) Absolute Monos (auto) (0.0-1.3) Lymphocytes % (24.0-44.0) % Monocytes % (0.0-12.0) % Eosinophils % (0.00-5.0) % Basophils % (0.0-0.4) % Absolute Granulocytes (1.4-6.9) Basophils # (0-0.4) Puncture Site pCO2 (35-45) mmHg pO2 (75-100) mmHg Base Excess (-2.0-2.0) O2 Saturation (94-100) g/dF ABG pH (7.35-7.45) ABG HCO3 (22-28) ABG O2 Sat (Measured) (95-100) % Tevin Test A-a Gradient a/A Ratio Hemoglobin Carboxyhemoglobin (0.0-6.9) % THgb Methemoglobin (1.4-1.5) % Potassium (3.5-5.1) Temperature C POC O2 Flow Rate % Sodium (137-145) mmol/L Chloride (98-107) mmol/L Carbon Dioxide (22-30) mmol/L Anion Gap (5-15) MEQ/L BUN (7-17) mg/dL Creatinine (0.52-1.04) mg/dL Estimated GFR ML/MIN Glucose (74-106) mg/dL Hemoglobin A1c 9.13 H (4.5-6.0) % Calcium (8.4-10.2) mg/dL Magnesium 2.3 (1.6-2.3) mg/dL Total Bilirubin (0.2-1.3) mg/dL AST (14-36) U/L ALT (0-35) U/L Alkaline Phosphatase (38-126) U/L Serum Total Protein (6.3-8.2) g/dL Albumin (3.5-5.0) g/dL Multi-Disciplinary Progress Notes: Multi-Disciplinary Progress Notes 03/19/20 23:31 Respiratory Note by Whit Nair THIS RT CALLED TO PT'S ROOM POST SEIZURE FOR INADEQUATE BREATHING. UPON ENTERING THE ROOM PT HAD SNORING RESPIRATIONS AND NOT RESPONDING TO VERBAL STIMULATION. AN ABG WAS DRAWN AT THIS TIME. Ph 7.36, CO2 37, PO2 172 ON 3L NASAL CANNULA. PLACED PT ON CO2 MONITOR. WILL CONTINUE TO MONITOR. Initialized on 03/19/20 23:31 - END OF NOTE Assessment/Plan (1) Seizure Current Visit: Yes Status: Acute Assessment & Plan: This is new for the patient. Most common cause at this age is post CVA however the stroke that was read out on CT appears old. Patient is on seroquel which lists seizures as a side effect. Unsure how long patient has been on this medication but we may need to be discontinue. Patient was started on keppra. Will need to check keppra level. She is post ictal during exam this am and appears very agitated. Mg level was checked also as potential cause for seizure but was wnl. Patient will get EEG tomorrow. She is on seizure precautions. Code(s): R56.9 - UNSPECIFIED CONVULSIONS (2) Hypomagnesemia Current Visit: Yes Status: Acute Assessment & Plan: Will continue on routine home meds Code(s): E83.42 - HYPOMAGNESEMIA (3) Hypertension Current Visit: Yes Status: Acute Assessment & Plan: will continue on routine home meds Code(s): I10 - ESSENTIAL (PRIMARY) HYPERTENSION
[2020-03-21] MEDS: Klor Con 10 MEQ PO SCH ×3 (00:36→21:46)
[2020-03-21] MEDS: Seroquel 100 MG PO SCH ×2 (00:36→21:46)
[2020-03-21] MEDS: Keppra 250 MG PO SCH (00:36)
[2020-03-21] MEDS: Wellbutrin XL 150 MG PO SCH ×3 (00:37→21:47)
[2020-03-21] MEDS: Zestril 10 MG PO SCH ×3 (00:38→21:46)
[2020-03-21] MEDS: ZOCOR 20MG PO SCH ×2 (00:38→21:46)
[2020-03-21] MEDS: Lantus Insulin SQ SCH ×2 (00:43→21:47)
[2020-03-21] MEDS: Sodium Chloride 0.9% 1000 ML 1,000 ML IV SCH ×3 (01:47→23:05)
[2020-03-21] MEDS: Zofran 4 MG/2 ML VIAL IV PRN ×2 (06:55→23:05)
[2020-03-21 09:45] LABS: Absolute Neutrophil Ct (ANC) 4.84 (1.4-6.9); BASOPHIL % 0.3 % (0.0-0.4); Basophil (Absolute #) 0.02 (0-0.4); Eosinophil % 1.4 % (0.00-5.0); Eosinophil (Absolute #) 0.09 (0-0.5); Hematocrit 33.5 % (35-47); Hemoglobin 10.4 gm/dl (12.0-16.0); Mean Cell Volume 96.8 fl (78-100); Mean Corpuscular Hemoglobin 30.1 pg (26-32); Mean Platelet Volume 10.6 fl (7.5-11.0); Monocyte (Absolute #) 0.42 (0.0-1.3); Monocytes % 6.5 % (0.0-12.0); Neutrophil % 74.8 % (36.0-66.0); Platelet Count 162 K/mm3 (150-450); Red Blood Count 3.46 M/mm3 (4.1-5.4); Red Cell Distribution Width 14.9 % (11.5-14.0); White Blood Count 6.5 K/mm3 (4.0-10.5)
[2020-03-21] MEDS: Lopressor 25MG Tab PO SCH (09:51)
[2020-03-21] MEDS: ECOTRIN 81 MG PO SCH (09:51)
[2020-03-21] MEDS: Lasix 40 MG PO SCH (09:51)
[2020-03-21] MEDS: MAG-OX 400 PO SCH (09:51)
[2020-03-21 09:55] LABS: ANION GAP 10.1 MEQ/L (5-15); Calcium 8.3 mg/dL (8.4-10.2); Creatinine 1 1.54 mg/dL (0.52-1.04); Potassium 4.4 mmol/L (3.5-5.1)
[2020-03-21] MEDS: Keppra 500 MG/5 ML*** 1,000 MG in D5w 100ML Mini Bag 100 ML 100 ML IV SCH ×2 (10:31→21:45)
--- NOTE | 2020-03-21 17:23 | PCM.NOTE ---
Date and Time: 03/21/201721 Subjective Assessment: doing better, no seizure - Review of Systems Constitutional: No Fever, No Chills Eyes: No Symptoms Ears, Nose, & Throat: No Symptoms Respiratory: No Cough, No Short Of Breath Cardiac: No Chest Pain, No Edema, No Syncope Abdominal/Gastrointestinal: No Abdominal Pain, No Nausea, No Vomiting, No Diarrhea Genitourinary Symptoms: No Dysuria Musculoskeletal: No Back Pain, No Neck Pain Skin: No Rash Neurological: No Dizziness, No Focal Weakness, No Sensory Changes Psychological: No Symptoms Endocrine: No Symptoms Hematologic/Lymphatic: No Symptoms Immunological/Allergic: No Symptoms Objective Exam General Appearance: no apparent distress, alert Neurologic Exam: alert, oriented x 3, cooperative, normal mood/affect, nml cerebellar function, sensation nml, No motor deficits Skin Exam: normal color, warm, dry Eye Exam: PERRL, EOMI, eyes nml inspection Ears, Nose, Throat Exam: normal ENT inspection, pharynx normal, moist mucous membranes Neck Exam: normal inspection, non-tender, supple, full range of motion Respiratory Exam: normal breath sounds, lungs clear, No respiratory distress Cardiovascular Exam: regular rate/rhythm, normal heart sounds Gastrointestinal/Abdomen Exam: soft, No tenderness, No mass Extremity Exam: normal inspection, normal range of motion Back Exam: normal inspection, normal range of motion, No CVA tenderness, No vertebral tenderness Pelvic Exam: deferred Rectal Exam: deferred OBJECTIVE DATA Vital Signs: Vital Signs - 24 hr Temp Pulse Resp BP Pulse Ox 03/21/20 15:50 97.7 F 64 22 131/71 96 03/21/20 12:00 98.4 F 62 20 135/67 94 L 03/21/20 07:22 98.8 F 81 22 142/74 96 03/21/20 07:16 92 L 03/21/20 06:56 96 03/21/20 04:30 98.0 F 72 18 138/64 96 03/20/20 23:54 98.2 F 66 14 152/63 96 03/20/20 20:00 97.9 F 61 128/59 97 03/20/20 18:50 93 L 03/20/20 17:25 94 L Pain Assessment - Last Documented Pain Intensity 0 Pain Scale Used FLACC Intake and Output: Intake & Output 03/19/20 03/20/20 03/21/2020 11:59 11:59 11:59 11:59 Intake Total 290 2700 10 Output Total 160 1300 Balance 549 1400 10 Weight 101 kg Lab Results: Accuchecks Date 03/21/20 Date 03/21/20 Date 03/21/20 Date 03/20/20 Time 16:30 Time 11:30 Time 07:30 Time 21:00 Accucheck Value: 125 Accucheck Value: 134 Accucheck Value: 127 Accucheck Value: 131 Lab Results-Last 24 Hours 03/21/20 03/21/20 Range/Units 09:20 09:20 WBC 6.5 (4.0-10.5) K/mm3 RBC 3.46 L (4.1-5.4) M/mm3 Hgb 10.4 L (12.0-16.0) gm/dl Hct 33.5 L (35-47) % MCV 96.8 (78-100) fl MCH 30.1 (26-32) pg MCHC 31.0 L (32-36) g/dl RDW 14.9 H (11.5-14.0) % Plt Count 162 (150-450) K/mm3 MPV 10.6 (7.5-11.0) fl Gran % 74.8 H (36.0-66.0) % Eos # (Auto) 0.09 (0-0.5) Absolute Lymphs (auto) 1.10 (1.0-4.6) Absolute Monos (auto) 0.42 (0.0-1.3) Lymphocytes % 17.0 L (24.0-44.0) % Monocytes % 6.5 (0.0-12.0) % Eosinophils % 1.4 (0.00-5.0) % Basophils % 0.3 (0.0-0.4) % Absolute Granulocytes 4.84 (1.4-6.9) Basophils # 0.02 (0-0.4) Sodium 139 (137-145) mmol/L Potassium 4.4 (3.5-5.1) mmol/L Chloride 108 H (98-107) mmol/L Carbon Dioxide 25 (22-30) mmol/L Anion Gap 10.1 (5-15) MEQ/L BUN 20 H (7-17) mg/dL Creatinine 1.54 H (0.52-1.04) mg/dL Estimated GFR 34.4 ML/MIN Glucose 121 H (74-106) mg/dL Calcium 8.3 L (8.4-10.2) mg/dL Multi-Disciplinary Progress Notes: Multi-Disciplinary Progress Notes 03/21/20 11:15 Case Management Note by Maria Luisa Mao INPATIENT RETURNING TO CO REQUIRE NEGATIVE COVID-19 RESULTS PRIOR TO RETURNING. COVID-19 TEST ENTERED AT THIS TIME. HS AWARE WILL MOVE PATIENT TO NEGATIVE PRESSURE ROOM FOR TESTING Initialized on 03/21/20 11:15 - END OF NOTE Assessment/Plan (1) Seizure as late effect of cerebrovascular accident (CVA) Current Visit: Yes Status: Acute Assessment & Plan: Chief Complaint Diagnosis New onset seizure, with 2 within 24 h Allergies Allergy/AdvReac Type Severity Reaction Status Date / Time Sulfa (Sulfonamide Allergy Mild Rash Verified 03/19/20 16:31 Antibiotics) [Sulfa(Sulfonamide Antibiotics)] Vital Signs (Last 24 hours) Temp Pulse Resp BP Pulse Ox 03/21/20 15:50 97.7 F 64 22 131/71 96 03/21/20 12:00 98.4 F 62 20 135/67 94 L 03/21/20 07:22 98.8 F 81 22 142/74 96 03/21/20 07:16 92 L 03/21/20 06:56 96 03/21/20 04:30 98.0 F 72 18 138/64 96 03/20/20 23:54 98.2 F 66 14 152/63 96 03/20/20 20:00 97.9 F 61 128/59 97 03/20/20 18:50 93 L 03/20/20 17:25 94 L Home Medications Medication Instructions Recorded Confirmed Last Taken Type Bupropion HCl [Bupropion HCl ER] 150 mg PO BID 03/19/20 03/19/20 Unknown History Furosemide 40 mg [Lasix 40 40 mg PO DAILY 03/19/20 03/19/20 Unknown History MG] Insulin Glargine,Hum.rec.anlog 10 units SQ HS 03/19/20 03/19/20 Unknown History [Lantus Solostar] Insulin Lispro [Humalog Kwikpen] 5 unit SQ DAILY 03/19/20 03/19/20 Unknown History Lisinopril 10 mg [Zestril 10 10 mg PO BID 03/19/20 03/19/20 Unknown History MG] Metoprolol Tartrate 25 mg PO DAILY 03/19/20 03/19/20 Unknown History Quetiapine Fumarate [Seroquel Xr] 100 mg PO HS 03/19/20 03/19/20 Unknown History Rivaroxaban [Xarelto] 15 mg PO EVENING MEAL 03/19/20 03/19/20 Unknown History Tramadol HCl [Ultram] 50 mg PO Q6H PRN PRN 03/19/20 03/19/20 Unknown History Current Medications Generic Name Dose Route Start Last Admin Trade Name Freq PRN Reason Stop Dose Admin Acetaminophen 650 mg 03/20/20 08:27 Tylenol 325 Mg PO 04/19/20 08:26 Q4H PRN PRN PAIN Aspirin 81 mg 03/20/20 10:00 03/21/20 09:51 Ecotrin 81 Mg PO 04/19/20 09:59 81 mg DAILY PJ Administration Bupropion HCl 150 mg 03/19/20 22:00 03/21/20 09:52 Wellbutrin Xl 150 Mg PO 04/18/20 21:59 150 mg BID PJ Administration Furosemide 40 mg 03/20/20 10:00 03/21/20 09:51 Lasix 40 Mg PO 04/19/20 09:59 40 mg DAILY PJ Administration Sodium Chloride 1,000 mls @ 100 mls/hr 03/19/20 19:00 03/21/20 12:38 Sodium Chloride 0.9% 1000 Ml IV 04/18/20 18:59 100 mls/hr .Q10H PJ Administration Levetiracetam 1,000 mg/ 110 mls @ 220 mls/hr 03/20/20 10:00 03/21/20 10:31 Dextrose IV 04/19/20 09:59 220 mls/hr BID PJ Administration Insulin Glargine 10 unit 03/19/20 22:00 03/21/20 00:43 Lantus Insulin SQ 04/18/20 21:59 10 unit HS PJ Administration Insulin Human Lispro 0 unit 03/19/20 18:48 03/19/20 22:36 Humalog SQ 04/18/20 18:47 2 unit UD PRN Administration HYPERGLYCEMIA Lisinopril 10 mg 03/19/20 22:00 03/21/20 09:51 Zestril 10 Mg PO 04/18/20 21:59 10 mg BID PJ Administration Lorazepam 1 mg 03/19/20 23:33 Ativan 2 Mg/1 Ml Vial IV 04/18/20 23:29 UD PRN SEIZURES Magnesium Hydroxide 30 ml 03/20/20 08:30 Milk Of Magnesia 30 Ml PO 04/19/20 08:29 BID PRN PJ Magnesium Oxide 400 mg 03/20/20 10:00 03/21/20 09:51 Mag-Ox 400 PO 04/19/20 09:59 400 mg DAILY PJ Administration Metoprolol Tartrate 25 mg 03/20/20 10:00 03/21/20 09:51 Lopressor 25mg Tab PO 04/19/20 09:59 25 mg DAILY PJ Administration Ondansetron HCl 4 mg 03/21/20 06:35 03/21/20 06:55 Zofran 4 Mg/2 Ml Vial IV 04/20/20 06:34 4 mg Q4H PRN PRN Administration NAUSEA/VOMITING Polyethylene Glycol 17 gm 03/20/20 08:32 Miralax Powder 17gm Packet PO 04/19/20 08:31 BID PRN PRN Potassium Chloride 10 meq 03/19/20 22:00 03/21/20 09:52 Klor Con 10 Meq PO 04/18/20 21:59 10 meq BID PJ Administration Quetiapine Fumarate 100 mg 03/19/20 22:00 03/21/20 00:36 Seroquel 100 Mg PO 04/18/20 21:59 Not Given HS PJ Simvastatin 20 mg 03/19/20 22:00 03/21/20 00:38 Zocor 20mg PO 04/18/20 21:59 Not Given HS PJ Tramadol HCl 50 mg 03/19/20 20:46 Ultram 50 Mg PO 04/18/20 20:45 Q6H PRN PRN PAIN Discontinued Medications Generic Name Dose Route Start Last Admin Trade Name Freq PRN Reason Stop Dose Admin Bupropion HCl Confirm 03/19/20 21:54 Wellbutrin Sr 150 Mg Administered 03/19/20 21:55 Dose 150 mg .ROUTE .STK-MED ONE Levetiracetam 500 mg/ Dextrose 105 mls @ 400 mls/hr 03/19/20 23:02 03/19/20 23:25 IV 03/19/20 23:17 400 mls/hr STAT ONE Administration Dextrose Confirm 03/19/20 23:10 D5w 100ml Mini Bag 100 Ml Administered 03/19/20 23:11 Dose 100 mls @ ud IV .STK-MED ONE Levetiracetam 500 mg/ Dextrose 105 mls @ 400 mls/hr 03/20/20 05:20 03/20/20 05:19 IV 03/20/20 05:35 400 mls/hr ONCE ONE Administration Dextrose Confirm 03/20/20 04:22 D5w 100ml Mini Bag 100 Ml Administered 03/20/20 04:23 Dose 100 mls @ ud IV .STK-MED ONE Sodium Chloride Confirm 03/20/20 07:32 Sodium Chloride 0.9% 1000 Ml Administered 03/20/20 07:33 Dose 1,000 mls @ ud .ROUTE .STK-MED ONE Levetiracetam 500 mg 03/19/20 22:00 03/19/20 22:33 Keppra 250 Mg PO 04/18/20 21:59 500 mg BID PJ Administration Levetiracetam Confirm 03/19/20 23:10 Keppra 500 Mg/5 Ml Administered 03/19/20 23:11 Dose 500 mg .ROUTE .STK-MED ONE Levetiracetam Confirm 03/19/20 21:55 Keppra 250 Mg Administered 03/19/20 21:56 Dose 500 mg .ROUTE .STK-MED ONE Levetiracetam 1,000 mg 03/20/20 10:00 03/21/20 00:36 Keppra 250 Mg PO 04/19/20 09:59 Not Given BID PJ Lorazepam 1 mg 03/19/20 22:55 03/20/20 07:56 Ativan 2 Mg/1 Ml Vial IV 03/19/20 22:56 Not Given STAT ONE Lorazepam 0.5 mg 03/19/20 22:56 03/20/20 07:56 Ativan 2 Mg/1 Ml Vial IV 03/19/20 22:57 Not Given ONCE STA Lorazepam 0.5 mg 03/19/20 22:55 03/20/20 07:45 Ativan 2 Mg/1 Ml Vial IV 03/19/20 22:56 Not Given STAT ONE Rivaroxaban 15 mg 03/19/20 22:00 03/19/20 23:32 Xarelto 10 Mg Tablet PO 03/19/20 22:01 Not Given ONCE ONE Intake & Output (Last 24 hours) 03/19/20 03/20/20 03/21/20 03/22/20 11:59 11:59 11:59 11:59 Intake Total 709 2700 10 Output Total 160 1300 Balance 549 1400 10 Weight 101 kg Microbiology Results (Last 24 hours) 03/20/20 07:05 Catherized Urine Culture - Preliminary GRAM POSITIVE ID AND SENSITIVITY PENDING Laboratory Results (Last 24 hours) 03/21/20 03/21/20 09:20 09:20 WBC 6.5 RBC 3.46 L Hgb 10.4 L Hct 33.5 L MCV 96.8 MCH 30.1 MCHC 31.0 L RDW 14.9 H Plt Count 162 MPV 10.6 Gran % 74.8 H Eos # (Auto) 0.09 Absolute Lymphs (auto) 1.10 Absolute Monos (auto) 0.42 Lymphocytes % 17.0 L Monocytes % 6.5 Eosinophils % 1.4 Basophils % 0.3 Absolute Granulocytes 4.84 Basophils # 0.02 Sodium 139 Potassium 4.4 Chloride 108 H Carbon Dioxide 25 Anion Gap 10.1 BUN 20 H Creatinine 1.54 H Estimated GFR 34.4 Glucose 121 H Calcium 8.3 L Orders (Last 24 hours) Category Date Time Status BMP Urgent Lab 03/21/20 09:20 Completed CBC W DIFF Urgent Lab 03/21/20 09:20 Completed Keppra Level [Levetiracetam] Routine Lab 03/22/20 04:00 Ordered BELINDA-COV-2 [employer] [facility] [BELINDA-CoV-2, JESUS MANUEL] Urgent Lab 03/21/20 Received Ondansetron HCl 4 mg/2 ml [Zofran 4 MG/2 ML VIAL] Med 03/21/20 06:35 Active 4 mg IV Q4H PRN PRN Patient Care Notes (Last 24 hours) 03/21/20 12:35 Nursing Note by Maria Luisa Mao S/W DR. DONIS REGARDING CHECKING A KEPPRA LEVEL AND PATIENT'S URINE CULTURE RESULTS. NEW ORDER FOR KEPPRA LEVEL IN THE AM DR. DONIS WISHES TO WAIT TO START PATIENT ON ANTIBIOTIC UNTIL FINAL CULTURE REPORT BACK. PER TRUNG AT [facility]- PATIENT WAS TREATED AT THE END OF JANUARY WITH ROCEPHIN 1GM IM DAILY X 10 DAYS(LAST DOSE WAS 03/02/2020) Initialized on 03/21/20 12:35 - END OF NOTE 03/21/20 12:15 (created 03/21/20 12:43) Nursing Note by Cristal Bowman Back from EEG. To rm 107 for lab covid test and completed. BAck to room 114. Resting in bed. Remains pleasantly confused. Initialized on 03/21/20 12:43 - END OF NOTE 03/21/20 12:13 (created 03/21/20 13:41) Nursing Note by Cheri Wahl patient is back from EEG test. Initialized on 03/21/20 13:41 - END OF NOTE 03/21/20 11:15 Case Management Note by Maria Luisa Mao INPATIENT RETURNING TO CO REQUIRE NEGATIVE COVID-19 RESULTS PRIOR TO RETURNING. COVID-19 TEST ENTERED AT THIS TIME. HS AWARE WILL MOVE PATIENT TO NEGATIVE PRESSURE ROOM FOR TESTING Initialized on 03/21/20 11:15 - END OF NOTE 03/21/20 10:43 Nursing Note by Cristal Bowman Patient for EEg. Patient remains pleasantly confused. Only oriented to self, but does follow commands slowly. Able to speak clearly now and brown fluids without difficulty. Initialized on 03/21/20 10:43 - END OF NOTE 03/21/20 09:40 Nursing Note by Cristal Bowman Unable to do MRI Brain d/t patient pacemaker. Dr Donis office notified. Initialized on 03/21/20 09:40 - END OF NOTE 03/21/20 09:06 Nursing Note by Cristal Bowman Dr called for update on patient and new orders recvd. CBC, BMP ordered and Radiolgy notified of MRI Brain (w & w/o contrast depending on creatine result). Initialized on 03/21/20 09:06 - END OF NOTE 03/21/20 07:10 SBAR Note by Skye Crawley SITUATION I am calling about SHILA MICHELLE the patient's code status is Full Code The problem I am calling about is: pt has had 2 episodes of emesis, in the last 2 hours, yellow bile. ASSESSMENT RECOMMENDATION Physician notified at 0710 New Orders received: new order received for Zofran input and administered. Vital Signs (Last 4 hours) Temp Pulse Resp BP Pulse Ox 03/21/20 06:56 96 03/21/20 04:30 98.0 F 72 18 138/64 96 Diagnois, Code Status Date of Arrival on Unit 03/19/20 Admitted From Direct Admit Diagnosis seizure Resucitation Status Full Code Intake and Output 24 Hours 03/21/20 03/22/20 06:59 06:59 Intake Total 2700 Output Total 1300 Balance 1400 Intake: Intake, Oral Amount 0 Intake, IV Amount 2604 Intake, IVPB: 96 Output: Output, Browning: 1300 Other: Number of Bowel Movements 0 Physical Assessment Anxiety Level Sleeping Mental Status Confused Patient Orientation Person Coma Scale Total 13 Breath Sounds [Anterior/ Clear Posterior Bilateral Throughout ] Cardiac Rhythm-[facility] Paced Bowel Sounds [All Quadrants] Present Abdomen Description Soft,Large,Non-Tender Urine Appearance Clear Urine Color Yellow Skin Color Maize Skin Temperature Warm PAST MEDICAL HISTORY Neurological History Alzheimer's Disease,Seizures,Stroke,Other ENT History Cataracts Endocrine Medical History Diabetes Type II Respiratory History No Pertinent History Cardiac History High Cholesterol,Hypertension,Other GI Medical History No Pertinent History,Gallbladder Disease,Other History Renal Disease Reproductive Disorders No Pertinent History Pyscho-Social History Depression Communicable Disease No Pertinent History Comment 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, pacer,diarrhea x 3 wks, chronic kidney failure, Diabetic (Last 24 Hours) Time 21:00 Time 16:08 Time 11:53 Time 07:57 Accucheck Value: 131 Accucheck Value: 133 Accucheck Value: 132 Blood Glucose Level: 158 Diet Order (Last 24 Hours) 03/20/20 Breakfast House Regular Diet Lab Results (Last 24 Hours) 03/20/20 Range/Units 09:38 Magnesium 2.3 (1.6-2.3) mg/dL Microbiology Results (Last 24 Hours) 03/20/20 01:00 Urine Culture - Pending Catherized Orders (Last 24 Hours) Category Date Time Status House Regular Diet Diet 03/20/20 Breakfast Active Acetaminophen 325 mg [Tylenol 325 mg] Med 03/20/20 08:27 Active 650 mg PO Q4H PRN PRN Aspirin EC 81 mg [Ecotrin 81 mg] Med 03/20/20 10:00 Active 81 mg PO DAILY Furosemide 40 mg [Lasix 40 MG] Med 03/20/20 10:00 Active 40 mg PO DAILY Levetiracetam 250 MG [Keppra 250 MG] Med 03/20/20 10:00 Active 1,000 mg PO BID Levetiracetam 500 MG/5 ML [Keppra 500 MG/5 ML] 1, Med 03/20/20 10:00 Active 000 mg D5w 100 ml [D5w 100ML Mini Bag 100 ML] 100 ml IV BID Magnesium Hydroxide 30 ml [Milk of Magnesia 30 ml Med 03/20/20 08:30 Active ] 30 ml PO BID PRN Magnesium Oxide 400 mg [Mag-Ox 400] Med 03/20/20 10:00 Active 400 mg PO DAILY Metoprolol Tartrate 25 mg [Lopressor 25MG Tab] Med 03/20/20 10:00 Active 25 mg PO DAILY Ondansetron HCl 4 mg/2 ml [Zofran 4 MG/2 ML VIAL] Med 03/21/20 06:35 Active 4 mg IV Q4H PRN PRN Polyethylene Glycol 3350 17 gm [Miralax Powder 17GM Med 03/20/20 08:32 Active PACKET] 17 gm PO BID PRN PRN Oxygen NASAL CANNULA 2 lpm RT 03/20/20 06:46 Active Nursing Notes (Last 12 hours) 03/20/20 20:07 Nursing Note by Adriana Rodriguez pt 85% on RA placed on 2L nc Addendum entered by Adriana Rodriguez 03/20/20 20:09: error entered on wrong pt Initialized on 03/20/20 20:07 - END OF NOTE Active Visit Medications Generic Name Dose Route Start Last Admin Trade Name Freq PRN Reason Stop Dose Admin Acetaminophen 650 mg 03/20/20 08:27 Tylenol 325 Mg PO 08/25/20 08:26 Q4H PRN PRN PAIN Aspirin 81 mg 03/20/20 10:00 03/20/20 09:47 Ecotrin 81 Mg PO 04/19/20 09:59 Not Given DAILY PJ Bupropion HCl 150 mg 03/19/20 22:00 03/21/20 00:37 Wellbutrin Xl 150 Mg PO 04/18/20 21:59 Not Given BID PJ Furosemide 40 mg 03/20/20 10:00 03/20/20 09:48 Lasix 40 Mg PO 04/19/20 09:59 Not Given DAILY PJ Sodium Chloride 1,000 mls @ 100 mls/hr 03/19/20 19:00 03/21/20 01:47 Sodium Chloride 0.9% 1000 Ml IV 04/18/20 18:59 100 mls/hr .Q10H PJ Administration Levetiracetam 1,000 mg/ 110 mls @ 220 mls/hr 03/20/20 10:00 03/20/20 21:53 Dextrose IV 04/19/20 09:59 220 mls/hr BID PJ Administration Insulin Glargine 10 unit 03/19/20 22:00 03/21/20 00:43 Lantus Insulin SQ 04/18/20 21:59 10 unit HS PJ Administration Insulin Human Lispro 0 unit 03/19/20 18:48 03/19/20 22:36 Humalog SQ 04/18/20 18:47 2 unit UD PRN Administration HYPERGLYCEMIA Levetiracetam 1,000 mg 03/20/20 10:00 03/21/20 00:36 Keppra 250 Mg PO 04/19/20 09:59 Not Given BID PJ Lisinopril 10 mg 03/19/20 22:00 03/21/20 00:38 Zestril 10 Mg PO 04/18/20 21:59 Not Given BID PJ Lorazepam 1 mg 03/19/20 23:33 Ativan 2 Mg/1 Ml Vial IV 04/18/20 23:29 UD PRN SEIZURES Magnesium Hydroxide 30 ml 03/20/20 08:30 Milk Of Magnesia 30 Ml PO 04/19/20 08:29 BID PRN PJ Magnesium Oxide 400 mg 03/20/20 10:00 03/20/20 09:48 Mag-Ox 400 PO 04/19/20 09:59 Not Given DAILY [facility] Metoprolol Tartrate 25 mg 03/20/20 10:00 03/20/20 09:48 Lopressor 25mg Tab PO 04/19/20 09:59 Not Given DAILY [facility] Ondansetron HCl 4 mg 03/21/20 06:35 03/21/20 06:55 Zofran 4 Mg/2 Ml Vial IV 04/20/20 06:34 4 mg Q4H PRN PRN Administration NAUSEA/VOMITING Polyethylene Glycol 17 gm 03/20/20 08:32 Miralax Powder 17gm Packet PO 04/19/20 08:31 BID PRN PRN Potassium Chloride 10 meq 03/19/20 22:00 03/21/20 00:36 Klor Con 10 Meq PO 04/18/20 21:59 Not Given BID [facility] Quetiapine Fumarate 100 mg 03/19/20 22:00 03/21/20 00:36 Seroquel 100 Mg PO 04/18/20 21:59 Not Given HS [facility] Simvastatin 20 mg 03/19/20 22:00 03/21/20 00:38 Zocor 20mg PO 04/18/20 21:59 Not Given HS [facility] Tramadol HCl 50 mg 03/19/20 20:46 Ultram 50 Mg PO 04/18/20 20:45 Q6H PRN PRN PAIN Home Medications Medication Instructions Recorded Confirmed Last Taken Type Bupropion HCl [Bupropion HCl ER] 150 mg PO BID 03/19/20 03/19/20 Unknown History Furosemide 40 mg [Lasix 40 40 mg PO DAILY 03/19/20 03/19/20 Unknown History MG] Insulin Glargine,Hum.rec.anlog 10 units SQ HS 03/19/20 03/19/20 Unknown History [Lantus Solostar] Insulin Lispro [Humalog Kwikpen] 5 unit SQ DAILY 03/19/20 03/19/20 Unknown Hi story Lisinopril 10 mg [Zestril 10 10 mg PO BID 03/19/20 03/19/20 Unknown History MG] Metoprolol Tartrate 25 mg PO DAILY 03/19/20 03/19/20 Unknown History Quetiapine Fumarate [Seroquel Xr] 100 mg PO HS 03/19/20 03/19/20 Unknown History Rivaroxaban [Xarelto] 15 mg PO EVENING MEAL 03/19/20 03/19/20 Unknown History Tramadol HCl [Ultram] 50 mg PO Q6H PRN PRN 03/19/20 03/19/20 Unknown History Initialized on 03/21/20 07:10 - END OF NOTE 03/20/20 20:07 Nursing Note by Adriana Rodriguez pt 85% on RA placed on 2L nc Addendum entered by Adriana Rodriguez 03/20/20 20:09: error entered on wrong pt Initialized on 03/20/20 20:07 - END OF NOTE Code(s): I69.398 - OTHER SEQUELAE OF CEREBRAL INFARCTION; R56.9 - UNSPECIFIED CONVULSIONS (2) Acute on chronic renal insufficiency Current Visit: No Status: Acute Code(s): N28.9 - DISORDER OF KIDNEY AND URETER, UNSPECIFIED; N18.9 - CHRONIC KIDNEY DISEASE, UNSPECIFIED
[2020-03-22] MEDS: Zestril 10 MG PO SCH ×2 (09:55→21:08)
[2020-03-22] MEDS: MAG-OX 400 PO SCH (09:55)
[2020-03-22] MEDS: ECOTRIN 81 MG PO SCH (09:56)
[2020-03-22] MEDS: Klor Con 10 MEQ PO SCH ×2 (09:56→21:08)
[2020-03-22] MEDS: Lopressor 25MG Tab PO SCH (09:56)
[2020-03-22] MEDS: Lasix 40 MG PO SCH (09:56)
[2020-03-22] MEDS: Wellbutrin XL 150 MG PO SCH ×2 (09:57→21:07)
[2020-03-22] MEDS ORDERED: D5w 100ML Mini Bag 100 ML 100 ML IV ONE (10:00)
[2020-03-22] MEDS: Keppra 500 MG/5 ML*** 1,000 MG in D5w 100ML Mini Bag 100 ML 100 ML IV SCH (10:00)
--- NOTE | 2020-03-22 12:47 | PCM.NOTE ---
Date and Time: 03/22/20 1240 Subjective Assessment: very drowsy, urine positive for E.Feacalis - Review of Systems Constitutional: No Fever, No Chills Eyes: No Symptoms Ears, Nose, & Throat: No Symptoms Respiratory: No Cough, No Short Of Breath Cardiac: No Chest Pain, No Edema, No Syncope Abdominal/Gastrointestinal: No Abdominal Pain, No Nausea, No Vomiting, No Diarrhea Genitourinary Symptoms: No Dysuria Musculoskeletal: No Back Pain, No Neck Pain Skin: No Rash Neurological: No Dizziness, No Focal Weakness, No Sensory Changes Psychological: No Symptoms Endocrine: No Symptoms Hematologic/Lymphatic: No Symptoms Immunological/Allergic: No Symptoms Objective Exam General Appearance: lethargy Neurologic Exam: No motor deficits Skin Exam: normal color, warm, dry Eye Exam: PERRL, EOMI, eyes nml inspection Ears, Nose, Throat Exam: normal ENT inspection, pharynx normal, moist mucous membranes Neck Exam: normal inspection, non-tender, supple, full range of motion Respiratory Exam: normal breath sounds, lungs clear, No respiratory distress Cardiovascular Exam: regular rate/rhythm, normal heart sounds Gastrointestinal/Abdomen Exam: soft, No tenderness, No mass Extremity Exam: normal inspection, normal range of motion Back Exam: normal inspection, normal range of motion, No CVA tenderness, No basil tebral tenderness Pelvic Exam: deferred Rectal Exam: deferred OBJECTIVE DATA Vital Signs: Vital Signs - 24 hr Temp Pulse Resp BP Pulse Ox 03/22/20 11:49 98.0 F 60 15 144/67 94 L 03/22/20 08:00 98.6 F 60 21 166/72 96 03/22/20 04:00 97.6 F 60 24 166/75 93 L 03/22/20 00:00 99.4 F 62 20 141/68 93 L 03/21/20 20:00 97.8 F 67 28 H 139/65 95 03/21/20 19:16 92 L 03/21/20 15:50 97.7 F 64 22 131/71 96 Pain Assessment - Last Documented Pain Intensity 0 Pain Scale Used [facility] Intake and Output: Intake & Output 03/20/20 03/21/20 03/22/20 03/23/20 11:59 11:59 11:59 11:59 Intake Total 709 2700 3057 Output Total 160 1300 1200 Balance 549 1400 1857 Weight 101 kg Lab Results: Accuchecks Date 03/21/20 Time 16:30 Accucheck Value: 166 Accucheck Value: 136 Accucheck Value: 96 Accucheck Value: 125 Multi-Disciplinary Progress Notes: Multi-Disciplinary Progress Notes 03/22/20 09:14 Case Management Note by Maria Luisa Mao NO CHANGE IN DC PLANS AT THIS TIME. PATIENT TO RETURN TO [facility] WHEN MEDICALLY READY AND COVID RESULT BACK Initialized on 03/22/20 09:14 - END OF NOTE Assessment/Plan (1) Seizure as late effect of cerebrovascular accident (CVA) Current Visit: Yes Status: Acute Assessment & Plan: will start keppra 250 mg po bid Code(s): I69.398 - OTHER SEQUELAE OF CEREBRAL INFARCTION; R56.9 - UNSPECIFIED CONVULSIONS (2) Acute on chronic renal insufficiency Current Visit: Yes Status: Chronic Code(s): N28.9 - DISORDER OF KIDNEY AND URETER, UNSPECIFIED; N18.9 - CHRONIC KIDNEY DISEASE, UNSPECIFIED
[2020-03-22] MEDS: Sodium Chloride 0.9% 1000 ML 1,000 ML IV SCH ×2 (13:08→23:17)
[2020-03-22] MEDS: HUMALOG SQ PRN (15:55)
[2020-03-22] MEDS: Keppra 250 MG PO SCH (21:07)
[2020-03-22] MEDS: Seroquel 100 MG PO SCH (21:07)
[2020-03-22] MEDS: ZOCOR 20MG PO SCH (21:08)
[2020-03-22] MEDS: Cipro 500 MG PO SCH (21:12)
[2020-03-22] MEDS: Lantus Insulin SQ SCH (21:12)
[2020-03-23] MEDS: Sodium Chloride 0.9% 1000 ML 1,000 ML IV SCH (07:29)
[2020-03-23] MEDS: Cipro 500 MG PO SCH (09:04)
[2020-03-23] MEDS: Klor Con 10 MEQ PO SCH (09:04)
[2020-03-23] MEDS: Keppra 250 MG PO SCH (09:05)
[2020-03-23] MEDS: MAG-OX 400 PO SCH (09:05)
[2020-03-23] MEDS: ECOTRIN 81 MG PO SCH (09:05)
[2020-03-23] MEDS: Lasix 40 MG PO SCH (09:05)
[2020-03-23] MEDS: Lopressor 25MG Tab PO SCH (09:05)
[2020-03-23] MEDS: Zestril 10 MG PO SCH (09:06)
[2020-03-23] MEDS: Wellbutrin XL 150 MG PO SCH (09:06)
[2020-03-23 11:50] VITALS: BP 119/78; PULSE 61; O2SAT 97
--- NOTE | 2020-03-23 11:52 | PCM.NOTE ---
Date and Time: 03/23/20 1151 Subjective Assessment: doing better, awaiting COVID 19 test results for her to be sent back to [place] - Review of Systems Constitutional: No Fever, No Chills Eyes: No Symptoms Ears, Nose, & Throat: No Symptoms Respiratory: No Cough, No Short Of Breath Cardiac: No Chest Pain, No Edema, No Syncope Abdominal/Gastrointestinal: No Abdominal Pain, No Nausea, No Vomiting, No Diarrhea Genitourinary Symptoms: No Dysuria Musculoskeletal: No Back Pain, No Neck Pain Skin: No Rash Neurological: No Dizziness, No Focal Weakness, No Sensory Changes Psychological: No Symptoms Endocrine: No Symptoms Hematologic/Lymphatic: No Symptoms Immunological/Allergic: No Symptoms Objective Exam General Appearance: no apparent distress, alert Neurologic Exam: alert, oriented x 3, cooperative, normal mood/affect, nml cerebellar function, sensation nml, No motor deficits Skin Exam: normal color, warm, dry Eye Exam: PERRL, EOMI, eyes nml inspection Ears, Nose, Throat Exam: normal ENT inspection, pharynx normal, moist mucous membranes Neck Exam: normal inspection, non-tender, supple, full range of motion Respiratory Exam: normal breath sounds, lungs clear, No respiratory distress Cardiovascular Exam: regular rate/rhythm, normal heart sounds Gastrointestinal/Abdomen Exam: soft, No tenderness, No mass Extremity Exam: normal inspection, normal range of motion Back Exam: normal inspection, normal range of motion, No CVA tenderness, No vertebral tenderness Pelvic Exam: deferred Rectal Exam: deferred OBJECTIVE DATA Vital Signs: Vital Signs - 24 hr Temp Pulse Resp BP Pulse Ox 03/23/20 11:50 98.6 F 61 20 119/78 97 03/23/20 07:29 98.5 F 66 20 120/56 93 L 03/23/20 04:00 97.9 F 80 20 107/57 94 L 03/23/20 00:00 97.9 F 62 20 126/56 96 03/22/20 19:43 97.7 F 69 15 115/56 94 L 03/22/20 16:00 98.7 F 60 16 133/78 96 Pain Assessment - Last Documented Pain Intensity 0 Pain Scale Used FLACC Intake and Output: Intake & Output 03/20/20 03/21/20 03/22/20 03/23/20 11:59 11:59 11:59 11:59 Intake Total 709 2700 3057 2060 Output Total 160 1300 1200 4250 Balance 549 1400 1857 -2190 Weight 101 kg 101 kg Lab Results: Accuchecks Date 03/23/20 Date 03/22/20 Date 03/22/20 Time 07:31 Time 21:00 Time 15:57 Accucheck Value: 133 Accucheck Value: 126 Accucheck Value: 358 Multi-Disciplinary Progress Notes: Multi-Disciplinary Progress Notes 03/23/20 11:20 Case Management Note by Maria Luisa Mao NO CHANGE IN DC PLANS- STILL AWAITING COVID TESTING RESULTS Initialized on 03/23/20 11:20 - END OF NOTE Assessment/Plan (1) Seizure as late effect of cerebrovascular accident (CVA) Current Visit: Yes Status: Acute Assessment & Plan: improved. Code(s): I69.398 - OTHER SEQUELAE OF CEREBRAL INFARCTION; R56.9 - UNSPECIFIED CONVULSIONS (2) Acute on chronic renal insufficiency Current Visit: Yes Status: Chronic Code(s): N28.9 - DISORDER OF KIDNEY AND URETER, UNSPECIFIED; N18.9 - CHRONIC KIDNEY DISEASE, UNSPECIFIED
[2020-03-23] MEDS ORDERED: Sodium Chloride 0.9% 10 ML FLUSH Syringe IV PRN (12:45)
[2020-03-23] MEDS ORDERED: Sodium Chloride 0.9% 10 ML FLUSH Syringe IV SCH (14:00)
== END 2020-03-23 15:26 | DRG 101 ==
LOC: MED SURG 12:12 → OBSVTOIN 03-20 12:12
PROVIDERS: ADMIT General Practice; ATTEND Family Medicine
DX: R56.9 Unspecified convulsions (principal); I69.398 Other sequelae of cerebral infarction; E78.00 Pure hypercholesterolemia, unspecified; E11.22 Type 2 diabetes mellitus with diabetic chronic kidney disease; I12.9 Hypertensive chronic kidney disease with stage 1 through stage 4 chronic kidney disease, or unspecified chronic kidney disease; N18.9 Chronic kidney disease, unspecified; E83.42 Hypomagnesemia; Z95.0 Presence of cardiac pacemaker; Z79.899 Other long term (current) drug therapy
CPT/HCPCS: 36415; 70450; 80048; 80053; 80177; 81001; 82375; 82803; 82962; 83036; 83605; 83735; 85025; 87077; 87086; 87186; 93005; 93041; 93268; 94250; 94760; 94770; 95812; 96360; 99291; G0378; U0003; 36000; 36600; 99284; J1817; J1953; J2405; A9270-GY

== ENCOUNTER 2020-03-19 16:12 | Emergency (ER) | payer MEDICARE ==
[2020-03-19] MEDS ORDERED: Sodium Chloride 0.9% 1000 ML 1,000 ML IV STA ×2 (16:14→17:17)
[2020-03-19 16:31] LABS: Absolute Neutrophil Ct (ANC) 3.18 (1.4-6.9); BASOPHIL % 0.5 % (0.0-0.4); Basophil (Absolute #) 0.03 (0-0.4); Eosinophil % 6.1 % (0.00-5.0); Eosinophil (Absolute #) 0.36 (0-0.5); Hematocrit 34.1 % (35-47); Hemoglobin 10.4 gm/dl (12.0-16.0); Lymphocyte (Absolute #) 1.77 (1.0-4.6); Lymphocytes % 29.9 % (24.0-44.0); Mean Cell Volume 96.3 fl (78-100); Mean Corpuscular Hemoglobin 29.4 pg (26-32); Mean Corpuscular Hgb Concent. 30.5 g/dl (32-36); Mean Platelet Volume 10.7 fl (7.5-11.0); Monocyte (Absolute #) 0.58 (0.0-1.3); Monocytes % 9.8 % (0.0-12.0); Neutrophil % 53.7 % (36.0-66.0); Platelet Count 180 K/mm3 (150-450); Red Blood Count 3.54 M/mm3 (4.1-5.4); Red Cell Distribution Width 15.4 % (11.5-14.0); White Blood Count 5.9 K/mm3 (4.0-10.5)
[2020-03-19 16:43] LABS: ALBUMIN 3.8 g/dL (3.5-5.0); ANION GAP 15.3 MEQ/L (5-15); BILIRUBIN,TOTAL 0.5 mg/dL (0.2-1.3); Calcium 8.5 mg/dL (8.4-10.2); Creatinine 1 2.38 mg/dL (0.52-1.04); Potassium 4.5 mmol/L (3.5-5.1); Total Protein 6.6 g/dL (6.3-8.2)
--- NOTE | 2020-03-19 16:48 | ERPHSYRPT ---
- History of Present Illness Time Seen by Provider: 03/19/20 16:47 Source: patient, EMS, [facility] records Exam Limitations: no limitations Patient Subjective Stated Complaint: pt brought in by ambulance for a possible seizure today. she was stanidng in doorway talking to a staff member when she started shaking and was lowered to ground Triage Nursing Assessment: pt alert, but confused to events which is normal for her,skin w/d/p. ,moves all ext well, has edema to lower legs that is normal. Physician History: pt brought in by ambulance for a possible seizure today. she was stanidng in doorway talking to a staff member when she started shaking and was lowered to ground patient is alert awake, in ER Timing/Duration: today Severity: mild Character of Deficits: none Deficits: no difficulties Baseline/Normal Cognition: alert oriented x 3 Current Cognition: alert oriented x 3 Baseline Gait: uses cane Associated Symptoms: denies symptoms Allergies/Adverse Reactions: Sulfa (Sulfonamide Antibiotics) [Sulfa(Sulfonamide Antibiotics)] Allergy (Mild, Verified 03/19/20 16:31) Rash Home Medications: Magnesium Oxide 400 mg [Mag-Ox 400] 400 mg PO DAILY 04/08/15 [History] Simvastatin 20 mg PO DAILY 07/16/16 [History] Lisinopril 40 mg PO DAILY 06/08/17 [History] Acetaminophen 325 mg [Tylenol 325 mg] 650 mg PO Q4H PRN PRN 07/16/17 [History] Loperamide HCl 2 mg [Imodium 2 mg] 2 mg PO DAILY 07/16/17 [History] Magnesium Hydroxide 30 ml [Milk of Magnesia 30 ml] 30 ml PO BID PRN 07/16/17 [History] Polyethylene Glycol 3350 [Glycolax] 17 gm PO BID 07/16/17 [History] Potassium Chloride 10 Meq Tab* [Klor Con 10 MEQ] 10 meq PO DAILY 07/16/17 [History] Sodium Phosphate,[place]-Dibasic [Enema] 266 ml RC DAILY 07/16/17 [History] Hx Tetanus, Diphtheria Vaccination/Date Given: No Hx Influenza Vaccination/Date Given: Yes Hx Pneumococcal Vaccination/Date Given: Yes Immunizations Up to Date: Yes Travel Risk - International Travel Have you traveled outside of the country in past 3 weeks: No - Coronavirus Screening Are you exhibiting any of the following symptoms?: No Close contact with a COVID-19 positive Pt in past 14-21 Days: No - Review of Systems Constitutional: No Fever, No Chills Eyes: No Symptoms Ears, Nose, & Throat: No Symptoms Respiratory: No Cough, No Dyspnea Cardiac: No Chest Pain, No Edema, No Syncope Abdominal/Gastrointestinal: No Abdominal Pain, No Nausea, No Vomiting, No Diarrhea Genitourinary Symptoms: No Dysuria Musculoskeletal: No Back Pain, No Neck Pain Skin: No Rash Neurological: No Dizziness, No Focal Weakness, No Sensory Changes Psychological: No Symptoms Endocrine: No Symptoms All Other Systems: Reviewed and Negative - Past Medical History Pertinent Past Medical History: Yes Neurological History: Alzheimer's Disease, Stroke, Other ENT History: Cataracts Cardiac History: High Cholesterol, Hypertension, Other Respiratory History: No Pertinent History Endocrine Medical History: Diabetes Type II Musculoskeletal History: Arthritis GI Medical History: No Pertinent History, Other History: Renal Disease Psycho-Social History: Depression Female Reproductive Disorders: No Pertinent History Other Medical History: 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, pacer,diarrhea x 3 wks, chronic kidney failure, - Past Surgical History Past Surgical History: Yes Neuro Surgical History: No Pertinent History Cardiac: Cardiac Catheterization, Pacemaker Respiratory: No Pertinent History Gastrointestinal: Appendectomy, Cholecystectomy, Colon Resection Genitourinary: No Pertinent History Musculoskeletal: Joint Replacement, Orthopedic Surgery Female Surgical History: No Pertinent History Other Surgical History: BILATERAL KNEE REPLACE, LEFT HIP REPLACE , COLOSTOMY PLACED AND REVERSED, carpal tunnel - Social History Smoking Status: Former smoker How long have you smoked: 60 Exposure to second hand smoke: No Drug Use: none Patient Lives Alone: No - Female History Hx Last Menstrual Period: psot - Nursing Vital Signs Nursing Vital Signs: Pain Scale Pain Intensity 0 - Gabriel Coma Scale Best Eye Response (Barnard): (4) open spontaneously Best Verbal Response (Barnard): (5) oriented Best Motor Response (Barnard): (6) obeys commands Gabriel Total: 15 - Physical Exam General Appearance: no apparent distress, alert Eye Exam: bilateral eye: PERRL, EOMI Ears, Nose, Throat Exam: normal ENT inspection, moist mucous membranes Neck Exam: normal inspection, non-tender, supple Respiratory: normal breath sounds, lungs clear, airway intact, No respiratory distress Cardiovascular: regular rate/rhythm, No edema Gastrointestinal: soft, No tenderness, No distention Back Exam: normal inspection Extremity Exam: normal inspection, No pedal edema Mental Status: alert, 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 Exam: tongue midline Coordination/Gait: normal finger to nose, normal gait Skin Exam: normal color, warm, dry, No rash - Course Nursing assessment & vital signs reviewed: Yes Rhythm Strip: Normal Sinus Rhythm - CT Exams Head CT Interpretation: Tele-radiologist Report (no acute changes) Ordered Tests: Active Orders 24 hr Category Date Time Status Accucheck STAT Care 03/19/20 16:14 Active Respiratory Care Faculty STAT Care 03/19/20 16:15 Active EKG-ER Only STAT Care 03/19/20 16:14 Active IV Insertion STAT Care 03/19/20 16:14 Active HEAD WITHOUT CONTRAST [CT] Stat Exams 03/19/20 16:15 Taken CBC W DIFF Stat Lab 03/19/20 16:28 Completed CMP Stat Lab 03/19/20 16:28 Completed Lactic Acid Stat Lab 03/19/20 16:40 Completed UA W/RFX UR CULTURE Stat Lab 03/19/20 17:27 Ordered Medication Summary Generic Name Dose Route Start Last Admin Trade Name Freq PRN Reason Stop Dose Admin Sodium Chloride 1,000 mls @ 999 mls/hr 03/19/20 17:17 Sodium Chloride 0.9% 1000 Ml IV 03/19/20 18:17 .Q1H1M STA Discontinued Medications Generic Name Dose Route Start Last Admin Trade Name Freq PRN Reason Stop Dose Admin Sodium Chloride 1,000 mls @ 999 mls/hr 03/19/20 16:14 03/19/20 16:53 Sodium Chloride 0.9% 1000 Ml IV 03/19/20 17:14 999 mls/hr .Q1H1M STA Administration Sodium Chloride Confirm 03/19/20 16:50 Sodium Chloride 0.9% 1000 Ml Administered 03/19/20 16:51 Dose 1,000 mls @ ud .ROUTE .K-MED ONE Lab/Rad Data: Laboratory Result Diagrams 03/19/20 16:28 03/19/20 16:28 Laboratory Results 03/19/20 03/19/20 03/19/20 Range/Units 16:40 16:28 16:28 WBC 5.9 (4.0-10.5) K/mm3 RBC 3.54 L (4.1-5.4) M/mm3 Hgb 10.4 L (12.0-16.0) gm/dl Hct 34.1 L (35-47) % MCV 96.3 (78-100) fl MCH 29.4 (26-32) pg MCHC 30.5 L (32-36) g/dl RDW 15.4 H (11.5-14.0) % Plt Count 180 (150-450) K/mm3 MPV 10.7 (7.5-11.0) fl Gran % 53.7 (36.0-66.0) % Eos # (Auto) 0.36 (0-0.5) Absolute Lymphs (auto) 1.77 (1.0-4.6) Absolute Monos (auto) 0.58 (0.0-1.3) Lymphocytes % 29.9 (24.0-44.0) % Monocytes % 9.8 (0.0-12.0) % Eosinophils % 6.1 H (0.00-5.0) % Basophils % 0.5 (0.0-0.4) % Absolute Granulocytes 3.18 (1.4-6.9) Basophils # 0.03 (0-0.4) Sodium 139 (137-145) mmol/L Potassium 4.5 (3.5-5.1) mmol/L Chloride 103 (98-107) mmol/L Carbon Dioxide 25 (22-30) mmol/L Anion Gap 15.3 H (5-15) MEQ/L BUN 33 H (7-17) mg/dL Creatinine 2.38 H (0.52-1.04) mg/dL Estimated GFR 20.8 ML/MIN Glucose 210 H (74-106) mg/dL Lactic Acid 1.9 (0.4-2.0) Calcium 8.5 (8.4-10.2) mg/dL Total Bilirubin 0.50 (0.2-1.3) mg/dL AST 18 (14-36) U/L ALT 12 (0-35) U/L Alkaline Phosphatase 67 (38-126) U/L Serum Total Protein 6.6 (6.3-8.2) g/dL Albumin 3.8 (3.5-5.0) g/dL - Progress Progress: improved Counseled pt/family regarding: lab results, diagnosis, need for follow-up, rad results - Departure Departure Disposition: Extended Care Facility Clinical Impression: Acute on chronic renal insufficiency Syncope Qualifiers: Syncope type: unspecified Qualified Code(s): R55 - Syncope and collapse Condition: Stable Critical Care Time: Yes Critical Care Time(excluding separately billable procedures): Critical 30-74 mins Referrals: ANGELA MAK [Primary Care Provider] - Outpatient Orders: COMPREHENSIVE/RENAL Time Frame: 1 Week, Facility: [facility], Location: LABORATORY
[2020-03-19] MEDS ORDERED: Sodium Chloride 0.9% 1000 ML 1,000 ML ONE (16:50)
[2020-03-19 17:30] VITALS: BP 128/67
[2020-03-19 17:39] LABS: Appearance CLEAR (CLEAR); Bacteria NONE SEEN /HPF (NEGATIVE); Bilirubin NEGATIVE (NEGATIVE); Blood NEGATIVE Ery/ul (0-5); Epithelial Cells RARE /HPF (FEW); Glucose NEGATIVE (NEGATIVE); Ketones NEGATIVE (NEGATIVE); Leukocyte Esterase SMALL (NEGATIVE); Mucus SLIGHT /HPF (NEGATIVE); Nitrite NEGATIVE (NEGATIVE); Protein,Urine Dip NEGATIVE (Negative); RBC 0-2 /HPF (0-2); Specific Gravity 1.012 (1.005-1.025); Urobilinogen NEGATIVE mg/dL (0-1); WBC 0-2 /HPF (0-5)
[2020-03-19 17:51] VITALS: PULSE 68; O2SAT 98
--- NOTE | 2020-03-19 20:07 | XRAY ---
Indication: New onset seizure. Multiple contiguous axial images obtained through the head without contrast. Comparison: None Age-appropriate global atrophy, mild periventricular degenerative micro-ischemia bilaterally, and small focus old infarct right vertex posteriorly. No acute intracranial hemorrhage, abnormal extra-axial fluid collection, or mass effect. Fourth ventricle is midline without hydrocephalus. Bony calvarium intact. Visualized paranasal sinuses and mastoid air cells are clear. Impression: Nonacute senile brain with small old infarct right vertex. Comment: Preliminary interpretation was made by [facility]. No critical discrepancy.
== END 2020-03-19 17:51 ==
LOC: ED 16:12
DX: R55 Syncope and collapse (principal); N18.9 Chronic kidney disease, unspecified; Z79.899 Other long term (current) drug therapy; E78.00 Pure hypercholesterolemia, unspecified; I10 Essential (primary) hypertension; E11.9 Type 2 diabetes mellitus without complications
CPT/HCPCS: 36000; 36415; 70450; 80053; 81001; 82962; 83605; 85025; 93005; 93041; 96360; 99284; 99291

== ENCOUNTER 2020-10-18 14:10 | Observation (INO) | payer MEDICARE ==
[2020-10-18 14:23] LABS: A-aADO2 20; ABG POTASSIUM 3.1 (3.5-5.1); ARTERIAL BLD GAS O2 SATURATION 99.4 % (95-100); ARTERIAL BLOOD GAS BASE EXCESS 10.8 (-2.0-2.0); ARTERIAL BLOOD GAS FIO2 21 %; ARTERIAL BLOOD GAS PCO2 39 mmHg (35-45); ARTERIAL BLOOD GAS PO2 81 mmHg (75-100); CARBOXYHEMOGLOBIN 2.1 % THgb (0.0-6.9); HCO3- 34.1 (22-28); HGB O2 SAT 96.5 g/dF (94-100); Methhemoglobin 0.9 % (1.4-1.5)
[2020-10-18 14:24] LABS: ABG HEMOGLOBIN 7.6; ARTERIAL BLOOD GAS pH 7.55 (7.35-7.45)
[2020-10-18 14:25] LABS: ABG SITE RIGHT BRACHIAL
[2020-10-18] MEDS ORDERED: Sodium Chloride 0.9% 1000 ML 1,000 ML IV SCH (14:45)
--- NOTE | 2020-10-18 14:53 | XRAY ---
Indication: Pneumonia. Comparison: June 08, 2017. Portable chest remains clear with chronic mild right hemidiaphragm elevation. Heart is not enlarged for AP portable technique with stable left pacemaker. Bony thorax intact again with mild osteopenia and degenerative changes. Impression: Continued nonacute chest with chronic features.
[2020-10-18] MEDS ORDERED: Sodium Chloride 0.9% 1000 ML 1,000 ML ONE (15:01)
--- NOTE | 2020-10-18 15:17 | XRAY ---
Indication: Altered mental status. Multiple contiguous axial images obtained through the head without contrast. Comparison: March 19, 2020. Again age-appropriate global atrophy, mild periventricular degenerative micro-ischemia, and small focus old infarct right vertex posteriorly. No acute intracranial hemorrhage, abnormal extra-axial fluid collection, or mass effect. Fourth ventricle is midline without hydrocephalus. Bony calvarium intact. Visualized paranasal sinuses and mastoid air cells are clear. Impression: Continued nonacute senile brain with small old infarct right vertex.
[2020-10-18 15:29] LABS: BASOPHIL % 0.3 % (0.0-0.4); Basophil (Absolute #) 0.03 (0-0.4); Eosinophil % 1.7 % (0.00-5.0); Hematocrit 25.2 % (35-47); Hemoglobin 7.3 gm/dl (12.0-16.0); Lymphocyte (Absolute #) 2.01 (1.0-4.6); Lymphocytes % 17.3 % (24.0-44.0); Mean Cell Volume 97.3 fl (78-100); Mean Corpuscular Hemoglobin 28.2 pg (26-32); Mean Platelet Volume 9.4 fl (7.5-11.0); Monocyte (Absolute #) 1.08 (0.0-1.3); Monocytes % 9.3 % (0.0-12.0); Neutrophil % 71.4 % (36.0-66.0); Platelet Count 401 K/mm3 (150-450); Red Blood Count 2.59 M/mm3 (4.1-5.4); Red Cell Distribution Width 15.6 % (11.5-14.0); White Blood Count 11.6 K/mm3 (4.0-10.5)
[2020-10-18 15:57] LABS: ALBUMIN 2.9 g/dL (3.5-5.0); ANION GAP 8.9 MEQ/L (5-15); BILIRUBIN,TOTAL 0.2 mg/dL (0.2-1.3); Calcium 8.4 mg/dL (8.4-10.2); Creatinine 1 1.6 mg/dL (0.52-1.04); EST GLOMERULAR FILTRATION RATE 32.9 ML/MIN; MAGNESIUM 2.1 mg/dL (1.6-2.3); Potassium 3.1 mmol/L (3.5-5.1); Total Protein 5.8 g/dL (6.3-8.2)
[2020-10-18 16:11] LABS: Appearance CLOUDY (CLEAR); Bacteria RARE /HPF (NEGATIVE); Bilirubin NEGATIVE (NEGATIVE); Blood NEGATIVE Ery/ul (0-5); Glucose >=500 mg/dL (NEGATIVE); Ketones NEGATIVE (NEGATIVE); Leukocyte Esterase SMALL (NEGATIVE); Mucus SLIGHT /HPF (NEGATIVE); Nitrite NEGATIVE (NEGATIVE); Protein,Urine Dip NEGATIVE (Negative); Specific Gravity 1.007 (1.005-1.025); Urobilinogen NEGATIVE mg/dL (0-1)
--- NOTE | 2020-10-18 16:20 | ERPHSYRPT ---
- History of Present Illness Time Seen by Provider: 10/18/20 14:20 Source: patient Exam Limitations: no limitations Patient Subjective Stated Complaint: pt here for confusion and low hbg of 8. pt only co is coccyx from a pressure sore, Triage Nursing Assessment: pt júnior, but confused, arrived per ambulance, resp easy, skin w/d/p.face maski in place ,iv in place Physician History: Patient is a 80-year-old female presents to our ED via EMS from [facility] for evaluation of confusion/altered mental status. Patient has a history of Alzheimer's. However patient symptoms today are acutely worse from her base line. Patient unable to provide much information to this HPI as she is confused. No trauma. No fever. No nausea or vomiting. No diaphoresis. Patient symptoms are constant. No specific worsening or improving factors. Patient denies pain. She voices no other complaints or concerns at this time. Timing/Duration: today Severity: moderate Modifying Factors: Improves With: nothing Associated Symptoms: denies symptoms, No nausea, No vomiting, No shortness of breath, No heartburn, No diaphoresis, No cough, No chills, No chest pain, No fever, No headaches, No loss of appetite, No malaise, No syncope, No seizure, No weakness Allergies/Adverse Reactions: Sulfa (Sulfonamide Antibiotics) [Sulfa(Sulfonamide Antibiotics)] Allergy (Mild, Verified 03/19/20 16:31) Rash Home Medications: Simvastatin 20 mg PO HS 07/16/16 [History] Acetaminophen 325 mg [Tylenol 325 mg] 650 mg PO Q4H PRN PRN 07/16/17 [History] Magnesium Hydroxide 30 ml [Milk of Magnesia 30 ml] 30 ml PO BID PRN 07/16/17 [History] Polyethylene Glycol 3350 [Glycolax] 17 gm PO BID PRN PRN 07/16/17 [History] Potassium Chloride 10 Meq Tab* [Klor Con 10 MEQ] 10 meq PO BID 07/16/17 [History] Sodium Phosphate,[place]-Dibasic [Enema] 266 ml RC DAILY PRN 07/16/17 [History] Bupropion HCl [Bupropion HCl ER] 150 mg PO BID 03/19/20 [History] Furosemide 40 mg [Lasix 40 MG] 40 mg PO DAILY 03/19/20 [History] Insulin Glargine,Hum.rec.anlog [Lantus Solostar] 10 units SQ HS 03/19/20 [History] Insulin Lispro [Humalog Kwikpen U-100] 5 unit SQ DAILY 03/19/20 [History] Metoprolol Tartrate 25 mg PO DAILY 03/19/20 [History] Quetiapine Fumarate [Seroquel Xr] 100 mg PO HS 03/19/20 [History] Rivaroxaban [Xarelto] 15 mg PO EVENING MEAL 03/19/20 [History] Tramadol HCl [Ultram] 50 mg PO Q6H PRN PRN 03/19/20 [History] Ascorbic Acid [C-1000] 1 ea DAILY 10/18/20 [History] Cholecalciferol (Vitamin D3) [Vitamin D3] 1 ea DAILY 10/18/20 [History] Ferrous Sulfate [Feosol] 1 ea BID 10/18/20 [History] Insulin Aspart [Novolog] 2 units AC 10/18/20 [History] Multivitamin/Iron/Folic Acid [Centrum Adults Tablet] 1 ea DAILY 10/18/20 [History] Hx Tetanus, Diphtheria Vaccination/Date Given: No Hx Influenza Vaccination/Date Given: Yes Hx Pneumococcal Vaccination/Date Given: Yes Immunizations Up to Date: Yes Travel Risk - International Travel Have you traveled outside of the country in past 3 weeks: No - Coronavirus Screening Are you exhibiting any of the following symptoms?: No Close contact with a COVID-19 positive Pt in past 14-21 Days: No - Review of Systems All Other Systems: Unable due to condition - Past Medical History Pertinent Past Medical History: Yes Neurological History: Alzheimer's Disease, Seizures, Stroke, Other ENT History: Cataracts Cardiac History: High Cholesterol, Hypertension, Other Respiratory History: No Pertinent History Endocrine Medical History: Diabetes Type II Musculoskeletal History: Arthritis GI Medical History: No Pertinent History, Gallbladder Disease, Other History: Renal Disease Psycho-Social History: Depression Female Reproductive Disorders: No Pertinent History Other Medical History: 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, pacer,diarrhea x 3 wks, chronic kidney failure, - Past Surgical History Past Surgical History: Yes Neuro Surgical History: No Pertinent History Cardiac: Cardiac Catheterization, Pacemaker Respiratory: No Pertinent History Gastrointestinal: Appendectomy, Cholecystectomy, Colon Resection Genitourinary: No Pertinent History Musculoskeletal: Joint Replacement, Orthopedic Surgery Female Surgical History: No Pertinent History Other Surgical History: BILATERAL KNEE REPLACE, LEFT HIP REPLACE , COLOSTOMY PLACED AND REVERSED, carpal tunnel - Social History Smoking Status: Former smoker How long have you smoked: 60 Exposure to second hand smoke: No Drug Use: none Patient Lives Alone: No - Female History Hx Last Menstrual Period: post Hx Now: No - Nursing Vital Signs Nursing Vital Signs: Initial Vital Signs Temperature 98.4 F 10/18/20 14:12 Pulse Rate 69 10/18/20 14:12 Respiratory Rate 18 10/18/20 14:12 Pain Scale Pain Intensity 8 - Physical Exam General Appearance: no apparent distress, alert, other (Patient appears somewhat confused.) Eye Exam: PERRL/EOMI, eyes nml inspection Ears, Nose, Throat Exam: normal ENT inspection, TMs normal, pharynx normal, moist mucous membranes Neck Exam: normal inspection, non-tender, supple, full range of motion Respiratory Exam: normal breath sounds, lungs clear, No respiratory distress Cardiovascular Exam: regular rate/rhythm, normal heart sounds, normal peripheral pulses Gastrointestinal/Abdomen Exam: soft, normal bowel sounds, No tenderness, No mass Back Exam: normal inspection, normal range of motion, No CVA tenderness, No vertebral tenderness Extremity Exam: normal inspection, normal range of motion, pelvis stable Neurologic Exam: alert, oriented x 3, cooperative, normal mood/affect, nml cerebellar function, nml station & gait, sensation nml, No motor deficits Skin Exam: normal color, warm, dry, other (Foul-smelling sacral decubitus ulcer.), No rash Lymphatic Exam: other (Edema bilateral lower extremities. Negative Homans' sign bilaterally.), No adenopathy SpO2 Interpretation: normal SpO2: 99 O2 Delivery: Room Air - Course Nursing assessment & vital signs reviewed: Yes EKG Interpreted by Me: RATE (60), Sinus Rhythm, NORMAL AXIS, NORMAL INTERVALS - Radiology Exams Chest X-ray Interpretation: Teleradiologist Report (Portable chest demonstrates clear with chronic mild right hemidiaphragm elevation. Heart is not enlarged for AP portable technique with stable left pacemaker. Bony thorax intact again with mild osteopenia and degenerative changes. Continued nonacute chest with chronic features.) - CT Exams Head CT Interpretation: Tele-radiologist Report (Continued nonacute senile brain with small old infarct right vertex. Age-related global atrophy, mild periventricular degenerative microischemia and small focus of old right vertex posteriorly. No acute intracranial hemorrhage abnormal extra-axial fluid collection or mass-effect. Fourth ventricle) Ordered Tests: Active Orders 24 hr Category Date Time Status Registered Nurse Post Partum STAT Care 10/18/20 14:38 Active EKG-ER Only STAT Care 10/18/20 14:38 Active IV Insertion STAT Care 10/18/20 14:38 Active Pulse Oximetry (ED) STAT Care 10/18/20 14:38 Active CHEST 1 VIEW (PORTABLE) Stat Exams 10/18/20 14:38 Completed HEAD WITHOUT CONTRAST [CT] Stat Exams 10/18/20 14:40 Completed ABG [ARTERIAL BLOOD GASES] Stat Lab 10/18/20 14:21 Completed CBC W DIFF Stat Lab 10/18/20 15:28 Completed CMP Stat Lab 10/18/20 15:28 Completed CULTURE,URINE Stat Lab 10/18/20 15:41 Received MAGNESIUM Stat Lab 10/18/20 15:28 Completed TROPONIN Q3H Lab 10/18/20 15:28 Completed TROPONIN Q3H Lab 10/18/20 17:45 Ordered TROPONIN Q3H Lab 10/18/20 20:45 Ordered TROPONIN Q3H Lab 10/18/20 23:45 Ordered TROPONIN Q3H Lab 10/19/20 02:45 Ordered UA W/RFX UR CULTURE Stat Lab 10/18/20 15:41 Completed Transfer Order Routine Transfer 10/18/20 Ordered Medication Summary Generic Name Dose Route Start Last Admin Trade Name Freq PRN Reason Stop Dose Admin Sodium Chloride 1,000 mls @ 100 mls/hr 10/18/20 14:45 10/18/20 15:02 Sodium Chloride 0.9% 1000 Ml IV 11/17/20 14:44 100 mls/hr .Q10H PJ Administration Potassium Chloride 20 meq in 100 mls @ 50 mls/hr 10/18/20 17:00 Potassium Chloride 20 Meq In Water 100ml IV 10/18/20 20:59 Q2H PJ Discontinued Medications Generic Name Dose Route Start Last Admin Trade Name Freq PRN Reason Stop Dose Admin Ceftriaxone Sodium/Dextrose 1 g in 50 mls @ 100 mls/hr 10/18/20 16:56 10/18/20 17:02 Rocephin 1 Gm-D5w 50 Ml Bag IV 10/18/20 17:25 100 mls/hr STAT ONE 100 mls/hr Administration Ceftriaxone Sodium/Dextrose Confirm 10/18/20 16:59 Rocephin 1 Gm-D5w 50 Ml Bag Administered 10/18/20 17:00 Dose 1 g in 50 mls @ ud IV .STK-MED ONE Lab/Rad Data: Laboratory Result Diagrams 10/18/20 15:28 10/18/20 15:28 Laboratory Results 10/18/20 10/18/20 10/18/20 Range/Units 15:41 15:28 15:28 WBC (4.0-10.5) K/mm3 RBC (4.1-5.4) M/mm3 Hgb (12.0-16.0) gm/dl Hct (35-47) % MCV (78-100) fl MCH (26-32) pg MCHC (32-36) g/dl RDW (11.5-14.0) % Plt Count (150-450) K/mm3 MPV (7.5-11.0) fl Gran % (36.0-66.0) % Eos # (Auto) (0-0.5) Absolute Lymphs (auto) (1.0-4.6) Absolute Monos (auto) (0.0-1.3) Lymphocytes % (24.0-44.0) % Monocytes % (0.0-12.0) % Eosinophils % (0.00-5.0) % Basophils % (0.0-0.4) % Absolute Granulocytes (1.4-6.9) Basophils # (0-0.4) Puncture Site pCO2 (35-45) mmHg pO2 (75-100) mmHg Base Excess (-2.0-2.0) O2 Saturation (94-100) g/dF ABG pH (7.35-7.45) ABG HCO3 (22-28) ABG O2 Sat (Measured) (95-100) % Tevin Test A-a Gradient a/A Ratio Hemoglobin Carboxyhemoglobin (0.0-6.9) % THgb Methemoglobin (1.4-1.5) % Potassium 3.1 L (3.5-5.1) Temperature C POC O2 Flow Rate % Sodium 136 L (137-145) mmol/L Chloride 98 (98-107) mmol/L Carbon Dioxide 32 H (22-30) mmol/L Anion Gap 8.9 (5-15) MEQ/L BUN 29 H (7-17) mg/dL Creatinine 1.60 H (0.52-1.04) mg/dL Estimated GFR 32.9 ML/MIN Glucose 343 H (74-106) mg/dL Calcium 8.4 (8.4-10.2) mg/dL Magnesium 2.1 (1.6-2.3) mg/dL Total Bilirubin 0.20 (0.2-1.3) mg/dL AST 18 (14-36) U/L ALT 15 (0-35) U/L Alkaline Phosphatase 63 (38-126) U/L Troponin I < 0.012 (0.000-0.034) ng/mL Serum Total Protein 5.8 L (6.3-8.2) g/dL Albumin 2.9 L (3.5-5.0) g/dL Urine Color YELLOW (YELLOW) Urine Appearance CLOUDY (CLEAR) Urine pH 6.0 (5-6) Ur Specific [place] 1.007 (1.005-1.025) Urine Protein NEGATIVE (Negative) Urine Ketones NEGATIVE (NEGATIVE) Urine Blood NEGATIVE (0-5) [place]/ul Urine Nitrite NEGATIVE (NEGATIVE) Urine Bilirubin NEGATIVE (NEGATIVE) Urine Urobilinogen NEGATIVE (0-1) mg/dL Ur Leukocyte Esterase SMALL (NEGATIVE) Urine WBC (Auto) 16-25 (0-5) /HPF Urine RBC (Auto) 6-10 (0-2) /HPF U Epithel Cells (Auto) NONE (FEW) /HPF Urine Bacteria (Auto) RARE (NEGATIVE) /HPF Urine Mucus (Auto) SLIGHT (NEGATIVE) /HPF Urine Culture Reflexed YES (NO) Urine Glucose >=500 (NEGATIVE) mg/dL ABO Group Rh Factor Antibody Screen (NEGATIVE) 10/18/20 10/18/20 10/18/20 Range/Units 15:28 15:15 14:21 WBC 11.6 H (4.0-10.5) K/mm3 RBC 2.59 L (4.1-5.4) M/mm3 Hgb 7.3 L (12.0-16.0) gm/dl Hct 25.2 L (35-47) % MCV 97.3 (78-100) fl MCH 28.2 (26-32) pg MCHC 29.0 L (32-36) g/dl RDW 15.6 H (11.5-14.0) % Plt Count 401 (150-450) K/mm3 MPV 9.4 (7.5-11.0) fl Gran % 71.4 H (36.0-66.0) % Eos # (Auto) 0.20 (0-0.5) Absolute Lymphs (auto) 2.01 (1.0-4.6) Absolute Monos (auto) 1.08 (0.0-1.3) Lymphocytes % 17.3 L (24.0-44.0) % Monocytes % 9.3 (0.0-12.0) % Eosinophils % 1.7 (0.00-5.0) % Basophils % 0.3 (0.0-0.4) % Absolute Granulocytes 8.30 H (1.4-6.9) Basophils # 0.03 (0-0.4) Puncture Site RIGHT BRACHIAL pCO2 39 (35-45) mmHg pO2 81 (75-100) mmHg Base Excess 10.8 H (-2.0-2.0) O2 Saturation 96.5 (94-100) g/dF ABG pH 7.55 H* (7.35-7.45) ABG HCO3 34.1 H* (22-28) ABG O2 Sat (Measured) 99.4 (95-100) % Tevin Test NOT APPLICABLE A-a Gradient 20 a/A Ratio 0.80 Hemoglobin 7.6 L* Carboxyhemoglobin 2.1 (0.0-6.9) % THgb Methemoglobin 0.9 L (1.4-1.5) % Potassium 3.1 L (3.5-5.1) Temperature 37.0 C POC O2 Flow Rate 21 % Sodium (137-145) mmol/L Chloride (98-107) mmol/L Carbon Dioxide (22-30) mmol/L Anion Gap (5-15) MEQ/L BUN (7-17) mg/dL Creatinine (0.52-1.04) mg/dL Estimated GFR ML/MIN Glucose (74-106) mg/dL Calcium (8.4-10.2) mg/dL Magnesium (1.6-2.3) mg/dL Total Bilirubin (0.2-1.3) mg/dL AST (14-36) U/L ALT (0-35) U/L Alkaline Phosphatase (38-126) U/L Troponin I (0.000-0.034) ng/mL Serum Total Protein (6.3-8.2) g/dL Albumin (3.5-5.0) g/dL Urine Color (YELLOW) Urine Appearance (CLEAR) Urine pH (5-6) Ur Specific [place] (1.005-1.025) Urine Protein (Negative) Urine Ketones (NEGATIVE) Urine Blood (0-5) [place]/ul Urine Nitrite (NEGATIVE) Urine Bilirubin (NEGATIVE) Urine Urobilinogen (0-1) mg/dL Ur Leukocyte Esterase (NEGATIVE) Urine WBC (Auto) (0-5) /HPF Urine RBC (Auto) (0-2) /HPF U Epithel Cells (Auto) (FEW) /HPF Urine Bacteria (Auto) (NEGATIVE) /HPF Urine Mucus (Auto) (NEGATIVE) /HPF Urine Culture Reflexed (NO) Urine Glucose (NEGATIVE) mg/dL ABO Group A Rh Factor POSITIVE Antibody Screen NEGATIVE (NEGATIVE) - Progress Progress: improved Progress Note: 10/18/20 17:32 Patient reassessed. She feels comfortable. Type and screen performed anemia of 7.3. Potassium 3.1. Potassium IV ordered. Urinary tract infection observed. Patient received a gram Rocephin. IV fluids infused. This will help the hyperglycemia. Patient has a large sacral decubitus ulcer. There is a foul smelling odor emanating from this area. Patient is not septic. This will likely require surgical debridement. Case discussed with Dr. Luna who accepts admission to observation. Plan of care discussed with patient. She agrees to admission [facility] for further evaluation and treatment. Discussed with : Tatiana Will see patient in: hospital (observation) Counseled pt/family regarding: lab results, diagnosis, rad results - Departure Departure Disposition: Observation Clinical Impression: Altered mental status, UTI (urinary tract infection), Hypokalemia, Hyperglycemia, Pedal edema, Weakness, Dehydration, Sacral decubitus ulcer Condition: Stable Critical Care Time: No Referrals: ANGELA MAK [Primary Care Provider] -
[2020-10-18] MEDS ORDERED: ROCEPHIN 1 Gm-D5w 50 ml Bag** 1 G/50 ML IVPB IV ONE ×2 (16:56→16:59)
[2020-10-18] MEDS ORDERED: POTASSIUM CHLORIDE 20 mEq IN WATER 100ML 20 MEQ/100 ML BAG IV SCH (17:00)
[2020-10-18 17:22] LABS: ABO TYPING A; Antibody Screen NEGATIVE (NEGATIVE); RH TYPING POSITIVE
[2020-10-18] MEDS ORDERED: POTASSIUM CHLORIDE 20 mEq IN WATER 100ML 100 ML IV ONE (17:39)
[2020-10-18] MEDS ORDERED: ULTRAM 50 MG PO PRN ×2 (21:02→23:30)
[2020-10-18] MEDS: FEOSOL 325 MG PO SCH (22:45)
[2020-10-18] MEDS: Keppra 250 MG PO SCH (22:45)
[2020-10-18] MEDS: Seroquel 100 MG PO SCH (22:45)
[2020-10-18] MEDS: ZOCOR 20MG PO SCH (22:45)
[2020-10-18] MEDS: Klor Con 10 MEQ PO SCH (22:45)
[2020-10-18] MEDS: Wellbutrin SR 150 MG PO SCH (22:45)
[2020-10-18] MEDS: Lantus Insulin SQ SCH (22:51)
[2020-10-19 03:33] LABS: Absolute Neutrophil Ct (ANC) 6.74 (1.4-6.9); BASOPHIL % 0.3 % (0.0-0.4); Basophil (Absolute #) 0.03 (0-0.4); Eosinophil % 1.8 % (0.00-5.0); Eosinophil (Absolute #) 0.18 (0-0.5); Hematocrit 22.1 % (35-47); Lymphocyte (Absolute #) 1.95 (1.0-4.6); Mean Cell Volume 96.5 fl (78-100); Mean Corpuscular Hemoglobin 27.9 pg (26-32); Mean Platelet Volume 8.8 fl (7.5-11.0); Monocyte (Absolute #) 0.84 (0.0-1.3); Monocytes % 8.6 % (0.0-12.0); Neutrophil % 69.3 % (36.0-66.0); Platelet Count 362 K/mm3 (150-450); Red Blood Count 2.29 M/mm3 (4.1-5.4); Red Cell Distribution Width 15.6 % (11.5-14.0); White Blood Count 9.7 K/mm3 (4.0-10.5)
[2020-10-19 04:11] LABS: ALBUMIN 2.3 g/dL (3.5-5.0); BILIRUBIN,TOTAL 0.2 mg/dL (0.2-1.3); Calcium 7.9 mg/dL (8.4-10.2); Creatinine 1 1.44 mg/dL (0.52-1.04); EST GLOMERULAR FILTRATION RATE 37.1 ML/MIN; Potassium 3.1 mmol/L (3.5-5.1); Total Protein 4.7 g/dL (6.3-8.2)
[2020-10-19 04:12] LABS: Hemoglobin 6.4 gm/dl (12.0-16.0)
[2020-10-19 04:15] LABS: ANION GAP 8.1 MEQ/L (5-15)
[2020-10-19] MEDS ORDERED: Sodium Chloride 0.9% 500 ML 500 ML IV SCH (05:00)
[2020-10-19 05:47] LABS: CROSS MATCH (PRBC) COMPATIBLE (COMPATIBLE)
[2020-10-19] MEDS ORDERED: Sodium Chloride 0.9% 500 ML 500 ML IV ONE (06:15)
[2020-10-19] MEDS ORDERED: GAVILAX PO PRN (06:26)
[2020-10-19] MEDS ORDERED: TYLENOL 325 MG PO PRN (06:26)
[2020-10-19] MEDS ORDERED: Miralax Powder 17GM PACKET PO PRN (06:35)
[2020-10-19] MEDS ORDERED: HUMALOG SQ PRN (06:45)
[2020-10-19] MEDS: HUMALOG SQ SCH (09:17)
[2020-10-19] MEDS: Keppra 250 MG PO SCH ×2 (09:18→22:25)
[2020-10-19] MEDS: Lasix 40 MG PO SCH (09:18)
[2020-10-19] MEDS: FEOSOL 325 MG PO SCH ×2 (09:18→22:24)
[2020-10-19] MEDS: Klor Con 10 MEQ PO SCH ×2 (09:18→22:25)
[2020-10-19] MEDS: Wellbutrin SR 150 MG PO SCH ×2 (09:19→22:25)
[2020-10-19] MEDS: VITAMIN D PO SCH (09:19)
[2020-10-19] MEDS: THERAGRAN MULTIVITAMIN PO SCH (09:19)
[2020-10-19] MEDS: Lopressor 25MG Tab PO SCH (09:19)
[2020-10-19] MEDS: Vitamin C 500 MG PO SCH (09:19)
[2020-10-19] MEDS: ECOTRIN 81 MG PO SCH (09:20)
[2020-10-19] MEDS ORDERED: FOLIC ACID PO SCH (10:00)
[2020-10-19] MEDS ORDERED: ASCORBIC ACID PO SCH (10:00)
[2020-10-19] MEDS ORDERED: MULTIVITAMIN PO SCH (10:00)
[2020-10-19] MEDS ORDERED: CHOLECALCIFEROL PO SCH (10:00)
[2020-10-19] MEDS ORDERED: INSULIN LISPRO 5 UNIT SQ SCH (10:00)
[2020-10-19] MEDS ORDERED: IRON PO SCH (10:00)
[2020-10-19] MEDS: POTASSIUM CHLORIDE 20 mEq IN WATER 100ML 20 MEQ/100 ML BAG IV SCH ×2 (13:50→16:06)
[2020-10-19 15:02] LABS: Hematocrit 31.4 % (35-47); Hemoglobin 9.4 gm/dl (12.0-16.0)
[2020-10-19] MEDS ORDERED: XARELTO 10 MG TABLET PO SCH (18:00)
[2020-10-19] MEDS ORDERED: NON-FORMULARY ITEM (Rivaroxaban [Xarelto] 15 MG) PO SCH (18:00)
--- NOTE | 2020-10-19 18:54 | PCM.HP ---
History of Present Illness - Chief Complaint Chief Complaint: weakness, fever for 2-3 days History of Present Illness: is a 80 year old female.presents to our ED via EMS from [facility] for evaluation of confusion/altered mental status. Patient has a history of Alzheimer's. However patient symptoms today are acutely worse from her baseline. Patient unable to provide much information to this HPI as she is confused. No trauma. No fever. No nausea or vomiting. No diaphoresis. Patient symptoms are constant. No specific worsening or improving factors. Patient denies pain. She voices no other complaints or concerns at this time. Timing/Duration: today Severity: moderate Modifying Factors: Improves With: nothing Associated Symptoms: denies symptoms, No nausea, No vomiting, No shortness of breath, No heartburn, No diaphoresis, No cough, No chills, No chest pain, No fever, No headaches, No loss of appetite, No malaise, No syncope, No seizure, No weakness NH nurse called me with worsening her decubitus ulcer - Review of Systems Constitutional: Fever, Chills, Fatigue, Lethargy, Weakness Eyes: No Symptoms Ears, Nose, & Throat: No Symptoms Respiratory: No Cough, No Short Of Breath Cardiac: No Chest Pain, No Edema, No Syncope Abdominal/Gastrointestinal: No Abdominal Pain, No Nausea, No Vomiting, No Diarrhea Genitourinary Symptoms: Dysuria, Frequency Musculoskeletal: No Back Pain, No Neck Pain Skin: Decubiti, No Rash Neurological: No Dizziness, No Focal Weakness, No Sensory Changes Psychological: No Symptoms Endocrine: No Symptoms Hematologic/Lymphatic: No Symptoms Immunological/Allergic: No Symptoms Medications & Allergies Home Medications: Home Medication List Simvastatin 20 mg PO HS 07/16/16 [History Confirmed 10/18/20] Acetaminophen 325 mg [Tylenol 325 mg] 650 mg PO Q4H PRN PRN 07/16/17 [History Confirmed 10/18/20] Polyethylene Glycol 3350 [Glycolax] 17 gm PO BID PRN PRN 07/16/17 [History Confirmed 10/18/20] Potassium Chloride 10 Meq Tab* [Klor Con 10 MEQ] 10 meq PO BID 07/16/17 [History Confirmed 10/18/20] Sodium Phosphate,Lynn-Dibasic [Enema] 266 ml RC DAILY PRN 07/16/17 [History Confirmed 10/18/20] Aspirin [Aspirin EC] 81 mg PO DAILY #0 07/22/17 [Rx Confirmed 10/18/20] Bupropion HCl [Bupropion HCl ER] 300 mg PO BID 03/19/20 [History Confirmed 10/18/20] Furosemide 40 mg [Lasix 40 MG] 40 mg PO DAILY 03/19/20 [History Confirmed 10/18/20] Insulin Glargine,Hum.rec.anlog [Lantus Solostar] 10 units SQ HS 03/19/20 [History Confirmed 10/18/20] Insulin Lispro [Humalog Kwikpen U-100] 5 unit SQ DAILY 03/19/20 [History Confirmed 10/18/20] Metoprolol Tartrate 25 mg PO DAILY 03/19/20 [History Confirmed 10/18/20] Quetiapine Fumarate [Seroquel Xr] 100 mg PO HS 03/19/20 [History Confirmed 10/18/20] Rivaroxaban [Xarelto] 15 mg PO EVENING MEAL 03/19/20 [History Confirmed 10/18/20] Tramadol HCl [Ultram] 50 mg PO Q6H PRN PRN 03/19/20 [History Confirmed 10/18/20] Levetiracetam 250 MG [Keppra 250 MG] 250 mg PO BID #60 tablet 03/23/20 [Rx Confirmed 10/18/20] Ascorbic Acid [C-1000] 1 ea DAILY 10/18/20 [History Confirmed 10/18/20] Cholecalciferol (Vitamin D3) [Vitamin D3] 1 ea PO DAILY 10/18/20 [History Confirmed 10/18/20] Ferrous Sulfate [Feosol] 1 ea PO BID 10/18/20 [History Confirmed 10/18/20] Insulin Aspart [Novolog] 1 unit SQ UD 10/18/20 [History Confirmed 10/18/20] Multivitamin/Iron/Folic Acid [Centrum Adults Tablet] 1 ea PO DAILY 10/18/20 [History Confirmed 10/18/20] Allergies/Adverse Reactions: Allergies Allergy/AdvReac Type Severity Reaction Status Date / Time Sulfa (Sulfonamide Allergy Mild Rash Verified 03/19/20 16:31 Antibiotics) [Sulfa(Sulfonamide Antibiotics)] - Past Medical History Past Medical History: Yes Neurological History: Alzheimer's Disease, Seizures, Stroke, Other ENT History: Cataracts Cardiac History: High Cholesterol, Hypertension, Other Respiratory History: No Pertinent History Endocrine Medical History: Diabetes Type II Musculoskelatal History: Arthritis GI Medical History: No Pertinent History, Gallbladder Disease, Other History: Renal Disease Pyscho-Social History: Depression Reproductive Disorders: No Pertinent History Comment: 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, pacer,diarrhea x 3 wks, chronic kidney failure, - Female History Hx Last Menstrual Period: post Are you now?: No - Past Surgical History Past Surgical History: Yes Neuro Surgical History: No Pertinent History Cardiac History: Cardiac Catheterization, Pacemaker Respiratory Surgery: No Pertinent History GI Surgical History: Appendectomy, Cholecystectomy, Colon Resection Genitourinary Surgical Hx: No Pertinent History Musculskeletal Surgical Hx: Joint Replacement, Orthopedic Surgery Female Surgical History: No Pertinent History Other Surgical History: BILATERAL KNEE REPLACE, LEFT HIP REPLACE , COLOSTOMY PLACED AND REVERSED, carpal tunnel - Social History Smoking Status: Former smoker How long have you smoked: 60 Exposure to second hand smoke: No Alcohol: None Drug Use: none - Physical Exam Vital Signs: Vital Signs - 24 hr Temp Pulse Resp BP Pulse Ox 10/19/20 16:00 97.8 F 82 16 123/75 95 10/19/20 11:35 97.6 F 78 18 126/61 93 L 10/19/20 07:03 98.1 F 83 20 114/53 90 L 10/19/20 04:00 97.8 F 85 16 105/51 92 L 10/19/20 00:00 98.2 F 77 24 111/62 96 General Appearance: moderate distress Neurologic Exam: disoriented, confusion Eye Exam: PERRL/EOMI Ears, Nose, Throat Exam: normal ENT inspection Neck Exam: normal inspection Respiratory Exam: diminished breath sounds, crackles/rales, rhonchi Cardiovascular Exam: regular rate/rhythm Gastrointestinal/Abdomen Exam: soft Pelvic Exam: not done Rectal Exam: deferred Back Exam: other (sacral decubitus stage 2) Extremity Exam: normal inspection Skin Exam: normal color Wound Assessment: Skin/Wound Assessment Wound/Incision Assessment Start: 10/18/20 18:52 Text: Status: Active Freq: Q6H Protocol: Document 10/19/20 14:00 RN (Rec: 10/19/20 14:05 RN [id number]) Wound/Incision Assessment Posterior Coccyx Wound Assessment Shift Assessment Wound Type Pressure Ulcer Wound Stage Unstageable Dressing Status Dry & Intact General Appearance Blackened Surrounding Tissue [place] Comment very foul smelling Wound Photo Photo Taken Yes Date: 10/18/20 Results - Labs Lab/Micro Results: Lab Results-Last 24 Hours 10/18/20 10/18/20 10/18/20 Range/Units 18:15 20:48 22:32 WBC (4.0-10.5) K/mm3 RBC (4.1-5.4) M/mm3 Hgb (12.0-16.0) gm/dl Hct (35-47) % MCV (78-100) fl MCH (26-32) pg MCHC (32-36) g/dl RDW (11.5-14.0) % Plt Count (150-450) K/mm3 MPV (7.5-11.0) fl Gran % (36.0-66.0) % Eos # (Auto) (0-0.5) Absolute Lymphs (auto) (1.0-4.6) Absolute Monos (auto) (0.0-1.3) Lymphocytes % (24.0-44.0) % Monocytes % (0.0-12.0) % Eosinophils % (0.00-5.0) % Basophils % (0.0-0.4) % Absolute Granulocytes (1.4-6.9) Basophils # (0-0.4) Sodium (137-145) mmol/L Potassium (3.5-5.1) mmol/L Chloride (98-107) mmol/L Carbon Dioxide (22-30) mmol/L Anion Gap (5-15) MEQ/L BUN (7-17) mg/dL Creatinine (0.52-1.04) mg/dL Estimated GFR ML/MIN Glucose (74-106) mg/dL Calcium (8.4-10.2) mg/dL Total Bilirubin (0.2-1.3) mg/dL AST (14-36) U/L ALT (0-35) U/L Alkaline Phosphatase (38-126) U/L Troponin I < 0.012 < 0.012 < 0.012 (0.000-0.034) ng/mL Serum Total Protein (6.3-8.2) g/dL Albumin (3.5-5.0) g/dL Crossmatch (COMPATIBLE) 10/18/20 10/19/20 10/19/20 Range/Units 22:32 03:29 03:29 WBC 9.7 (4.0-10.5) K/mm3 RBC 2.29 L (4.1-5.4) M/mm3 Hgb 6.4 L* (12.0-16.0) gm/dl Hct 22.1 L (35-47) % MCV 96.5 (78-100) fl MCH 27.9 (26-32) pg MCHC 29.0 L (32-36) g/dl RDW 15.6 H (11.5-14.0) % Plt Count 362 (150-450) K/mm3 MPV 8.8 (7.5-11.0) fl Gran % 69.3 H (36.0-66.0) % Eos # (Auto) 0.18 (0-0.5) Absolute Lymphs (auto) 1.95 (1.0-4.6) Absolute Monos (auto) 0.84 (0.0-1.3) Lymphocytes % 20.0 L (24.0-44.0) % Monocytes % 8.6 (0.0-12.0) % Eosinophils % 1.8 (0.00-5.0) % Basophils % 0.3 (0.0-0.4) % Absolute Granulocytes 6.74 (1.4-6.9) Basophils # 0.03 (0-0.4) Sodium (137-145) mmol/L Potassium 3.0 L (3.5-5.1) mmol/L Chloride (98-107) mmol/L Carbon Dioxide (22-30) mmol/L Anion Gap (5-15) MEQ/L BUN (7-17) mg/dL Creatinine (0.52-1.04) mg/dL Estimated GFR ML/MIN Glucose (74-106) mg/dL Calcium (8.4-10.2) mg/dL Total Bilirubin (0.2-1.3) mg/dL AST (14-36) U/L ALT (0-35) U/L Alkaline Phosphatase (38-126) U/L Troponin I < 0.012 (0.000-0.034) ng/mL Serum Total Protein (6.3-8.2) g/dL Albumin (3.5-5.0) g/dL Crossmatch (COMPATIBLE) 10/19/20 10/19/20 10/19/20 Range/Units 03:29 04:52 04:55 WBC (4.0-10.5) K/mm3 RBC (4.1-5.4) M/mm3 Hgb (12.0-16.0) gm/dl Hct (35-47) % MCV (78-100) fl MCH (26-32) pg MCHC (32-36) g/dl RDW (11.5-14.0) % Plt Count (150-450) K/mm3 MPV (7.5-11.0) fl Gran % (36.0-66.0) % Eos # (Auto) (0-0.5) Absolute Lymphs (auto) (1.0-4.6) Absolute Monos (auto) (0.0-1.3) Lymphocytes % (24.0-44.0) % Monocytes % (0.0-12.0) % Eosinophils % (0.00-5.0) % Basophils % (0.0-0.4) % Absolute Granulocytes (1.4-6.9) Basophils # (0-0.4) Sodium 138 (137-145) mmol/L Potassium 3.1 L (3.5-5.1) mmol/L Chloride 102 (98-107) mmol/L Carbon Dioxide 31 H (22-30) mmol/L Anion Gap 8.1 (5-15) MEQ/L BUN 22 H (7-17) mg/dL Creatinine 1.44 H (0.52-1.04) mg/dL Estimated GFR 37.1 ML/MIN Glucose 197 H (74-106) mg/dL Calcium 7.9 L (8.4-10.2) mg/dL Total Bilirubin 0.20 (0.2-1.3) mg/dL AST 14 (14-36) U/L ALT 12 (0-35) U/L Alkaline Phosphatase 50 (38-126) U/L Troponin I (0.000-0.034) ng/mL Serum Total Protein 4.7 L (6.3-8.2) g/dL Albumin 2.3 L (3.5-5.0) g/dL Crossmatch COMPATIBLE COMPATIBLE (COMPATIBLE) 10/19/20 Range/Units 14:55 WBC (4.0-10.5) K/mm3 RBC (4.1-5.4) M/mm3 Hgb 9.4 L D (12.0-16.0) gm/dl Hct 31.4 L (35-47) % MCV (78-100) fl MCH (26-32) pg MCHC (32-36) g/dl RDW (11.5-14.0) % Plt Count (150-450) K/mm3 MPV (7.5-11.0) fl Gran % (36.0-66.0) % Eos # (Auto) (0-0.5) Absolute Lymphs (auto) (1.0-4.6) Absolute Monos (auto) (0.0-1.3) Lymphocytes % (24.0-44.0) % Monocytes % (0.0-12.0) % Eosinophils % (0.00-5.0) % Basophils % (0.0-0.4) % Absolute Granulocytes (1.4-6.9) Basophils # (0-0.4) Sodium (137-145) mmol/L Potassium (3.5-5.1) mmol/L Chloride (98-107) mmol/L Carbon Dioxide (22-30) mmol/L Anion Gap (5-15) MEQ/L BUN (7-17) mg/dL Creatinine (0.52-1.04) mg/dL Estimated GFR ML/MIN Glucose (74-106) mg/dL Calcium (8.4-10.2) mg/dL Total Bilirubin (0.2-1.3) mg/dL AST (14-36) U/L ALT (0-35) U/L Alkaline Phosphatase (38-126) U/L Troponin I (0.000-0.034) ng/mL Serum Total Protein (6.3-8.2) g/dL Albumin (3.5-5.0) g/dL Crossmatch (COMPATIBLE) Microbiology 10/18/20 15:41 Urine Culture - Preliminary Urine, Void GRAM POSITIVE ID AND SENSITIVITY PENDING Accuchecks Date 10/19/20 Time 07:03 - Radiology Impressions Radiology Exams & Impressions: Radiology Procedures Category Date Time Status CHEST 1 VIEW (PORTABLE) Stat Exams 10/18/20 14:38 Completed HEAD WITHOUT CONTRAST [CT] Stat Exams 10/18/20 14:40 Completed Assessment/Plan (1) UTI (urinary tract infection) Current Visit: Yes Status: Acute Qualifiers: Urinary tract infection type: acute pyelonephritis Qualified Code(s): N10 - Acute pyelonephritis Assessment & Plan: Laboratory Results 10/19/20 10/19/20 10/19/20 Range/Units 14:55 04:55 04:52 WBC (4.0-10.5) K/mm3 RBC (4.1-5.4) M/mm3 Hgb 9.4 L D (12.0-16.0) gm/dl Hct 31.4 L (35-47) % MCV (78-100) fl MCH (26-32) pg MCHC (32-36) g/dl RDW (11.5-14.0) % Plt Count (150-450) K/mm3 MPV (7.5-11.0) fl Gran % (36.0-66.0) % Eos # (Auto) (0-0.5) Absolute Lymphs (auto) (1.0-4.6) Absolute Monos (auto) (0.0-1.3) Lymphocytes % (24.0-44.0) % Monocytes % (0.0-12.0) % Eosinophils % (0.00-5.0) % Basophils % (0.0-0.4) % Absolute Granulocytes (1.4-6.9) Basophils # (0-0.4) Puncture Site pCO2 (35-45) mmHg pO2 (75-100) mmHg Base Excess (-2.0-2.0) O2 Saturation (94-100) g/dF ABG pH (7.35-7.45) ABG HCO3 (22-28) ABG O2 Sat (Measured) (95-100) % Tevin Test A-a Gradient a/A Ratio Hemoglobin Carboxyhemoglobin (0.0-6.9) % THgb Methemoglobin (1.4-1.5) % Potassium (3.5-5.1) Temperature C POC O2 Flow Rate % Sodium (137-145) mmol/L Chloride (98-107) mmol/L Carbon Dioxide (22-30) mmol/L Anion Gap (5-15) MEQ/L BUN (7-17) mg/dL Creatinine (0.52-1.04) mg/dL Estimated GFR ML/MIN Glucose (74-106) mg/dL Calcium (8.4-10.2) mg/dL Magnesium (1.6-2.3) mg/dL Total Bilirubin (0.2-1.3) mg/dL AST (14-36) U/L ALT (0-35) U/L Alkaline Phosphatase (38-126) U/L Troponin I (0.000-0.034) ng/mL Serum Total Protein (6.3-8.2) g/dL Albumin (3.5-5.0) g/dL Urine Color (YELLOW) Urine Appearance (CLEAR) Urine pH (5-6) Ur Specific [place] (1.005-1.025) Urine Protein (Negative) Urine Ketones (NEGATIVE) Urine Blood (0-5) [place]/ul Urine Nitrite (NEGATIVE) Urine Bilirubin (NEGATIVE) Urine Urobilinogen (0-1) mg/dL Ur Leukocyte Esterase (NEGATIVE) Urine WBC (Auto) (0-5) /HPF Urine RBC (Auto) (0-2) /HPF U Epithel Cells (Auto) (FEW) /HPF Urine Bacteria (Auto) (NEGATIVE) /HPF Urine Mucus (Auto) (NEGATIVE) /HPF Urine Culture Reflexed (NO) Urine Glucose (NEGATIVE) mg/dL ABO Group Rh Factor Antibody Screen (NEGATIVE) Crossmatch COMPATIBLE COMPATIBLE (COMPATIBLE) 10/19/20 10/19/20 10/19/20 Range/Units 03:29 03:29 03:29 WBC 9.7 (4.0-10.5) K/mm3 RBC 2.29 L (4.1-5.4) M/mm3 Hgb 6.4 L* (12.0-16.0) gm/dl Hct 22.1 L (35-47) % MCV 96.5 (78-100) fl MCH 27.9 (26-32) pg MCHC 29.0 L (32-36) g/dl RDW 15.6 H (11.5-14.0) % Plt Count 362 (150-450) K/mm3 MPV 8.8 (7.5-11.0) fl Gran % 69.3 H (36.0-66.0) % Eos # (Auto) 0.18 (0-0.5) Absolute Lymphs (auto) 1.95 (1.0-4.6) Absolute Monos (auto) 0.84 (0.0-1.3) Lymphocytes % 20.0 L (24.0-44.0) % Monocytes % 8.6 (0.0-12.0) % Eosinophils % 1.8 (0.00-5.0) % Basophils % 0.3 (0.0-0.4) % Absolute Granulocytes 6.74 (1.4-6.9) Basophils # 0.03 (0-0.4) Puncture Site pCO2 (35-45) mmHg pO2 (75-100) mmHg Base Excess (-2.0-2.0) O2 Saturation (94-100) g/dF ABG pH (7.35-7.45) ABG HCO3 (22-28) ABG O2 Sat (Measured) (95-100) % Tevin Test A-a Gradient a/A Ratio Hemoglobin Carboxyhemoglobin (0.0-6.9) % THgb Methemoglobin (1.4-1.5) % Potassium 3.1 L (3.5-5.1) Temperature C POC O2 Flow Rate % Sodium 138 (137-145) mmol/L Chloride 102 (98-107) mmol/L Carbon Dioxide 31 H (22-30) mmol/L Anion Gap 8.1 (5-15) MEQ/L BUN 22 H (7-17) mg/dL Creatinine 1.44 H (0.52-1.04) mg/dL Estimated GFR 37.1 ML/MIN Glucose 197 H (74-106) mg/dL Calcium 7.9 L (8.4-10.2) mg/dL Magnesium (1.6-2.3) mg/dL Total Bilirubin 0.20 (0.2-1.3) mg/dL AST 14 (14-36) U/L ALT 12 (0-35) U/L Alkaline Phosphatase 50 (38-126) U/L Troponin I < 0.012 (0.000-0.034) ng/mL Serum Total Protein 4.7 L (6.3-8.2) g/dL Albumin 2.3 L (3.5-5.0) g/dL Urine Color (YELLOW) Urine Appearance (CLEAR) Urine pH (5-6) Ur Specific [place] (1.005-1.025) Urine Protein (Negative) Urine Ketones (NEGATIVE) Urine Blood (0-5) [place]/ul Urine Nitrite (NEGATIVE) Urine Bilirubin (NEGATIVE) Urine Urobilinogen (0-1) mg/dL Ur Leukocyte Esterase (NEGATIVE) Urine WBC (Auto) (0-5) /HPF Urine RBC (Auto) (0-2) /HPF U Epithel Cells (Auto) (FEW) /HPF Urine Bacteria (Auto) (NEGATIVE) /HPF Urine Mucus (Auto) (NEGATIVE) /HPF Urine Culture Reflexed (NO) Urine Glucose (NEGATIVE) mg/dL ABO Group Rh Factor Antibody Screen (NEGATIVE) Crossmatch (COMPATIBLE) 10/18/20 10/18/20 10/18/20 Range/Units 22:32 22:32 20:48 WBC (4.0-10.5) K/mm3 RBC (4.1-5.4) M/mm3 Hgb (12.0-16.0) gm/dl Hct (35-47) % MCV (78-100) fl MCH (26-32) pg MCHC (32-36) g/dl RDW (11.5-14.0) % Plt Count (150-450) K/mm3 MPV (7.5-11.0) fl Gran % (36.0-66.0) % Eos # (Auto) (0-0.5) Absolute Lymphs (auto) (1.0-4.6) Absolute Monos (auto) (0.0-1.3) Lymphocytes % (24.0-44.0) % Monocytes % (0.0-12.0) % Eosinophils % (0.00-5.0) % Basophils % (0.0-0.4) % Absolute Granulocytes (1.4-6.9) Basophils # (0-0.4) Puncture Site pCO2 (35-45) mmHg pO2 (75-100) mmHg Base Excess (-2.0-2.0) O2 Saturation (94-100) g/dF ABG pH (7.35-7.45) ABG HCO3 (22-28) ABG O2 Sat (Measured) (95-100) % Tevin Test A-a Gradient a/A Ratio Hemoglobin Carboxyhemoglobin (0.0-6.9) % THgb Methemoglobin (1.4-1.5) % Potassium 3.0 L (3.5-5.1) Temperature C POC O2 Flow Rate % Sodium (137-145) mmol/L Chloride (98-107) mmol/L Carbon Dioxide (22-30) mmol/L Anion Gap (5-15) MEQ/L BUN (7-17) mg/dL Creatinine (0.52-1.04) mg/dL Estimated GFR ML/MIN Glucose (74-106) mg/dL Calcium (8.4-10.2) mg/dL Magnesium (1.6-2.3) mg/dL Total Bilirubin (0.2-1.3) mg/dL AST (14-36) U/L ALT (0-35) U/L Alkaline Phosphatase (38-126) U/L Troponin I < 0.012 < 0.012 (0.000-0.034) ng/mL Serum Total Protein (6.3-8.2) g/dL Albumin (3.5-5.0) g/dL Urine Color (YELLOW) Urine Appearance (CLEAR) Urine pH (5-6) Ur Specific [place] (1.005-1.025) Urine Protein (Negative) Urine Ketones (NEGATIVE) Urine Blood (0-5) [place]/ul Urine Nitrite (NEGATIVE) Urine Bilirubin (NEGATIVE) Urine Urobilinogen (0-1) mg/dL Ur Leukocyte Esterase (NEGATIVE) Urine WBC (Auto) (0-5) /HPF Urine RBC (Auto) (0-2) /HPF U Epithel Cells (Auto) (FEW) /HPF Urine Bacteria (Auto) (NEGATIVE) /HPF Urine Mucus (Auto) (NEGATIVE) /HPF Urine Culture Reflexed (NO) Urine Glucose (NEGATIVE) mg/dL ABO Group Rh Factor Antibody Screen (NEGATIVE) Crossmatch (COMPATIBLE) 10/18/20 10/18/20 10/18/20 Range/Units 18:15 15:41 15:28 WBC (4.0-10.5) K/mm3 RBC (4.1-5.4) M/mm3 Hgb (12.0-16.0) gm/dl Hct (35-47) % MCV (78-100) fl MCH (26-32) pg MCHC (32-36) g/dl RDW (11.5-14.0) % Plt Count (150-450) K/mm3 MPV (7.5-11.0) fl Gran % (36.0-66.0) % Eos # (Auto) (0-0.5) Absolute Lymphs (auto) (1.0-4.6) Absolute Monos (auto) (0.0-1.3) Lymphocytes % (24.0-44.0) % Monocytes % (0.0-12.0) % Eosinophils % (0.00-5.0) % Basophils % (0.0-0.4) % Absolute Granulocytes (1.4-6.9) Basophils # (0-0.4) Puncture Site pCO2 (35-45) mmHg pO2 (75-100) mmHg Base Excess (-2.0-2.0) O2 Saturation (94-100) g/dF ABG pH (7.35-7.45) ABG HCO3 (22-28) ABG O2 Sat (Measured) (95-100) % Tevin Test A-a Gradient a/A Ratio Hemoglobin Carboxyhemoglobin (0.0-6.9) % THgb Methemoglobin (1.4-1.5) % Potassium (3.5-5.1) Temperature C POC O2 Flow Rate % Sodium (137-145) mmol/L Chloride (98-107) mmol/L Carbon Dioxide (22-30) mmol/L Anion Gap (5-15) MEQ/L BUN (7-17) mg/dL Creatinine (0.52-1.04) mg/dL Estimated GFR ML/MIN Glucose (74-106) mg/dL Calcium (8.4-10.2) mg/dL Magnesium (1.6-2.3) mg/dL Total Bilirubin (0.2-1.3) mg/dL AST (14-36) U/L ALT (0-35) U/L Alkaline Phosphatase (38-126) U/L Troponin I < 0.012 < 0.012 (0.000-0.034) ng/mL Serum Total Protein (6.3-8.2) g/dL Albumin (3.5-5.0) g/dL Urine Color YELLOW (YELLOW) Urine Appearance CLOUDY (CLEAR) Urine pH 6.0 (5-6) Ur Specific [place] 1.007 (1.005-1.025) Urine Protein NEGATIVE (Negative) Urine Ketones NEGATIVE (NEGATIVE) Urine Blood NEGATIVE (0-5) Cedrick/ul Urine Nitrite NEGATIVE (NEGATIVE) Urine Bilirubin NEGATIVE (NEGATIVE) Urine Urobilinogen NEGATIVE (0-1) mg/dL Ur Leukocyte Esterase SMALL (NEGATIVE) Urine WBC (Auto) 16-25 (0-5) /HPF Urine RBC (Auto) 6-10 (0-2) /HPF U Epithel Cells (Auto) NONE (FEW) /HPF Urine Bacteria (Auto) RARE (NEGATIVE) /HPF Urine Mucus (Auto) SLIGHT (NEGATIVE) /HPF Urine Culture Reflexed YES (NO) Urine Glucose >=500 (NEGATIVE) mg/dL ABO Group Rh Factor Antibody Screen (NEGATIVE) Crossmatch (COMPATIBLE) 10/18/20 10/18/20 10/18/20 Range/Units 15:28 15:28 15:15 WBC 11.6 H (4.0-10.5) K/mm3 RBC 2.59 L (4.1-5.4) M/mm3 Hgb 7.3 L (12.0-16.0) gm/dl Hct 25.2 L (35-47) % MCV 97.3 (78-100) fl MCH 28.2 (26-32) pg MCHC 29.0 L (32-36) g/dl RDW 15.6 H (11.5-14.0) % Plt Count 401 (150-450) K/mm3 MPV 9.4 (7.5-11.0) fl Gran % 71.4 H (36.0-66.0) % Eos # (Auto) 0.20 (0-0.5) Absolute Lymphs (auto) 2.01 (1.0-4.6) Absolute Monos (auto) 1.08 (0.0-1.3) Lymphocytes % 17.3 L (24.0-44.0) % Monocytes % 9.3 (0.0-12.0) % Eosinophils % 1.7 (0.00-5.0) % Basophils % 0.3 (0.0-0.4) % Absolute Granulocytes 8.30 H (1.4-6.9) Basophils # 0.03 (0-0.4) Puncture Site pCO2 (35-45) mmHg pO2 (75-100) mmHg Base Excess (-2.0-2.0) O2 Saturation (94-100) g/dF ABG pH (7.35-7.45) ABG HCO3 (22-28) ABG O2 Sat (Measured) (95-100) % Tevin Test A-a Gradient a/A Ratio Hemoglobin Carboxyhemoglobin (0.0-6.9) % THgb Methemoglobin (1.4-1.5) % Potassium 3.1 L (3.5-5.1) Temperature C POC O2 Flow Rate % Sodium 136 L (137-145) mmol/L Chloride 98 (98-107) mmol/L Carbon Dioxide 32 H (22-30) mmol/L Anion Gap 8.9 (5-15) MEQ/L BUN 29 H (7-17) mg/dL Creatinine 1.60 H (0.52-1.04) mg/dL Estimated GFR 32.9 ML/MIN Glucose 343 H (74-106) mg/dL Calcium 8.4 (8.4-10.2) mg/dL Magnesium 2.1 (1.6-2.3) mg/dL Total Bilirubin 0.20 (0.2-1.3) mg/dL AST 18 (14-36) U/L ALT 15 (0-35) U/L Alkaline Phosphatase 63 (38-126) U/L Troponin I (0.000-0.034) ng/mL Serum Total Protein 5.8 L (6.3-8.2) g/dL Albumin 2.9 L (3.5-5.0) g/dL Urine Color (YELLOW) Urine Appearance (CLEAR) Urine pH (5-6) Ur Specific [place] (1.005-1.025) Urine Protein (Negative) Urine Ketones (NEGATIVE) Urine Blood (0-5) Cedrick/ul Urine Nitrite (NEGATIVE) Urine Bilirubin (NEGATIVE) Urine Urobilinogen (0-1) mg/dL Ur Leukocyte Esterase (NEGATIVE) Urine WBC (Auto) (0-5) /HPF Urine RBC (Auto) (0-2) /HPF U Epithel Cells (Auto) (FEW) /HPF Urine Bacteria (Auto) (NEGATIVE) /HPF Urine Mucus (Auto) (NEGATIVE) /HPF Urine Culture Reflexed (NO) Urine Glucose (NEGATIVE) mg/dL ABO Group A Rh Factor POSITIVE Antibody Screen NEGATIVE (NEGATIVE) Crossmatch (COMPATIBLE) 10/18/20 Range/Units 14:21 WBC (4.0-10.5) K/mm3 RBC (4.1-5.4) M/mm3 Hgb (12.0-16.0) gm/dl Hct (35-47) % MCV (78-100) fl MCH (26-32) pg MCHC (32-36) g/dl RDW (11.5-14.0) % Plt Count (150-450) K/mm3 MPV (7.5-11.0) fl Gran % (36.0-66.0) % Eos # (Auto) (0-0.5) Absolute Lymphs (auto) (1.0-4.6) Absolute Monos (auto) (0.0-1.3) Lymphocytes % (24.0-44.0) % Monocytes % (0.0-12.0) % Eosinophils % (0.00-5.0) % Basophils % (0.0-0.4) % Absolute Granulocytes (1.4-6.9) Basophils # (0-0.4) Puncture Site RIGHT BRACHIAL pCO2 39 (35-45) mmHg pO2 81 (75-100) mmHg Base Excess 10.8 H (-2.0-2.0) O2 Saturation 96.5 (94-100) g/dF ABG pH 7.55 H* (7.35-7.45) ABG HCO3 34.1 H* (22-28) ABG O2 Sat (Measured) 99.4 (95-100) % Tevin Test NOT APPLICABLE A-a Gradient 20 a/A Ratio 0.80 Hemoglobin 7.6 L* Carboxyhemoglobin 2.1 (0.0-6.9) % THgb Methemoglobin 0.9 L (1.4-1.5) % Potassium 3.1 L (3.5-5.1) Temperature 37.0 C POC O2 Flow Rate 21 % Sodium (137-145) mmol/L Chloride (98-107) mmol/L Carbon Dioxide (22-30) mmol/L Anion Gap (5-15) MEQ/L BUN (7-17) mg/dL Creatinine (0.52-1.04) mg/dL Estimated GFR ML/MIN Glucose (74-106) mg/dL Calcium (8.4-10.2) mg/dL Magnesium (1.6-2.3) mg/dL Total Bilirubin (0.2-1.3) mg/dL AST (14-36) U/L ALT (0-35) U/L Alkaline Phosphatase (38-126) U/L Troponin I (0.000-0.034) ng/mL Serum Total Protein (6.3-8.2) g/dL Albumin (3.5-5.0) g/dL Urine Color (YELLOW) Urine Appearance (CLEAR) Urine pH (5-6) Ur Specific [place] (1.005-1.025) Urine Protein (Negative) Urine Ketones (NEGATIVE) Urine Blood (0-5) Cedrick/ul Urine Nitrite (NEGATIVE) Urine Bilirubin (NEGATIVE) Urine Urobilinogen (0-1) mg/dL Ur Leukocyte Esterase (NEGATIVE) Urine WBC (Auto) (0-5) /HPF Urine RBC (Auto) (0-2) /HPF U Epithel Cells (Auto) (FEW) /HPF Urine Bacteria (Auto) (NEGATIVE) /HPF Urine Mucus (Auto) (NEGATIVE) /HPF Urine Culture Reflexed (NO) Urine Glucose (NEGATIVE) mg/dL ABO Group Rh Factor Antibody Screen (NEGATIVE) Crossmatch (COMPATIBLE) Medication Adminisitration Report Acetaminophen (Tylenol 325 Mg) 650 mg PO Q4H PRN PRN PRN Reason: PAIN Stop: 11/18/20 06:25 Ascorbic Acid (Vitamin C 500 Mg) 1,000 mg PO DAILY [facility] Stop: 11/18/20 09:59 Last Admin: 10/19/20 09:19 Dose: 1,000 mg Documented by: STACI Aspirin (Ecotrin 81 Mg) 81 mg PO DAILY [facility] Stop: 11/18/20 09:59 Last Admin: 10/19/20 09:20 Dose: Not Given Documented by: STACI Non-Admin Reason: Low HGB Bupropion HCl (Wellbutrin Sr 150 Mg) 300 mg PO BID [facility] Stop: 11/17/20 21:59 Last Admin: 10/19/20 09:19 Dose: 300 mg Documented by: Admin: 10/18/20 22:45 Dose: 300 mg Documented by: SANA Cholecalciferol (Vitamin D) 2,000 unit PO DAILY [facility] Stop: 11/18/20 09:59 Last Admin: 10/19/20 09:19 Dose: 2,000 unit Documented by: STACI Ferrous Sulfate (Feosol 325 Mg) 325 mg PO BID [facility] Stop: 11/17/20 21:59 Last Admin: 10/19/20 09:18 Dose: 325 mg Documented by: Admin: 10/18/20 22:45 Dose: 325 mg Documented by: SANA Furosemide (Lasix 40 Mg) 40 mg PO DAILY [facility] Stop: 11/18/20 09:59 Last Admin: 10/19/20 09:18 Dose: 40 mg Documented by: STACI Sodium Chloride (Sodium Chloride 0.9% 500 Ml) 500 mls @ 50 mls/hr IV .Q10H [facility] Stop: 11/18/20 04:59 Last Admin: 10/19/20 09:17 Dose: 50 mls/hr Documented by: STACI Infusion/Titration Document 10/19/20 09:17 RN (Rec: 10/19/20 09:17 RN [id number]) Dosing & Rate IV Rate 50 Increase/Decrease Started Cumulative Dose Not Applicable IV Intake Container Volume 500 Volume Adjustment/Waste 0 Insulin Glargine (Lantus Insulin) 10 unit SQ HS [facility] Stop: 11/17/20 21:59 Last Admin: 10/18/20 22:51 Dose: 10 unit Documented by: SANA MAR Injection Site Document 10/18/20 22:51 LB (Rec: 10/18/20 22:51 LB [id number]) Injection Site MAR Injection Site Left Lower Quad Insulin Human Lispro (Humalog) 5 unit SQ QDAC PJ Stop: 11/18/20 07:29 Last Admin: 10/19/20 09:17 Dose: 5 unit Documented by: STACI MAR GLUCOSE CHECK Document 10/19/20 09:17 RN (Rec: 10/19/20 09:18 RN [id number]) POCT Blood Glucose POCT Glucose (Last Value) 197 per lab MAR Injection Site Document 10/19/20 09:17 RN (Rec: 10/19/20 09:18 RN [id number]) Injection Site MAR Injection Site Left Lower Quad Insulin Human Lispro (Humalog) 0 unit SQ UD PRN Stop: 11/18/20 06:44 Levetiracetam (Keppra 250 Mg) 250 mg PO BID PJ Stop: 11/17/20 21:59 Last Admin: 10/19/20 09:18 Dose: 250 mg Documented by: Admin: 10/18/20 22:45 Dose: 250 mg Documented by: SANA Metoprolol Tartrate (Lopressor 25mg Tab) 25 mg PO DAILY PJ Stop: 11/18/20 09:59 Last Admin: 10/19/20 09:19 Dose: Not Given Documented by: STACI Non-Admin Reason: Low BP Multivitamins Therapeutic (Theragran Multivitamin) 1 tab PO DAILY PJ Stop: 11/18/20 09:59 Last Admin: 10/19/20 09:19 Dose: 1 tab Documented by: STACI Polyethylene Glycol (Miralax Powder 17gm Packet) 17 gm PO BID PRN PRN PRN Reason: CONSTIPATION Stop: 11/18/20 06:34 Potassium Chloride (Klor Con 10 Meq) 10 meq PO BID PJ Stop: 11/17/20 21:59 Last Admin: 10/19/20 09:18 Dose: 10 meq Documented by: Admin: 10/18/20 22:45 Dose: 10 meq Documented by: SANA Quetiapine Fumarate (Seroquel 100 Mg) 100 mg PO HS PJ Stop: 11/17/20 21:59 Last Admin: 10/18/20 22:45 Dose: 100 mg Documented by: SANA Rivaroxaban (Xarelto 10 Mg Tablet) 15 mg PO EVENING MEAL PJ Stop: 11/18/20 17:59 Last Admin: 10/19/20 17:15 Dose: Not Given Documented by: STACI Non-Admin Reason: 2 U of PRBCs today Simvastatin (Zocor 20mg) 20 mg PO HS PJ Stop: 11/17/20 21:59 Last Admin: 10/18/20 22:45 Dose: 20 mg Documented by: SANA Tramadol HCl (Ultram 50 Mg) 50 mg PO Q6H PRN PRN PRN Reason: PAIN Stop: 11/17/20 21:01 Discontinued Medications Sodium Chloride (Sodium Chloride 0.9% 1000 Ml) 1,000 mls @ 100 mls/hr IV .Q10H PJ Stop: 11/17/20 14:44 Last Admin: 10/18/20 15:02 Dose: 100 mls/hr Documented by: NICOLÁS ED IV Start & Stop Times Document 10/18/20 15:02 KM (Rec: 10/18/20 15:03 KM [id number]) IV Hydration (IV FLUIDS) IV Hydration Start Date 10/18/20 IV Hydation Start Time 15:03 Med Admininistration (IV,IVP) Document 10/18/20 15:02 KM (Rec: 10/18/20 15:03 KM [id number]) Type of Administration Initial IV Push No Infusion/Titration Document 10/18/20 15:02 KM (Rec: 10/18/20 15:03 [id number]) Dosing & Rate IV Rate 100 Increase/Decrease Started Cumulative Dose Not Applicable IV Intake Container Volume 1,000 Volume Adjustment/Waste 0 Re-Assess: ED IV Start & Stop Times Document 10/18/20 17:56 (Rec: 10/18/20 17:56 [id number]) IV Hydration (IV FLUIDS) IV Hydration Start Date 10/18/20 IV Hydation Start Time 14:45 IV Hydration Stop Date 10/18/20 IV Hydation Stop Time 17:56 IV Hydration Elapsed Time 191 Potassium Chloride (Potassium Chloride 20 Meq In Water 100ml) 20 meq in 100 mls @ 50 mls/hr IV Q2H PJ Stop: 10/18/20 20:59 Last Admin: 10/18/20 17:42 Dose: 50 mls/hr Documented by: NICOLÁS ED IV Start & Stop Times Document 10/18/20 17:42 KM (Rec: 10/18/20 17:42 [id number]) IV Infusion First Hour (1XONLY) (IVPB) IV Infusion Start Date 10/18/20 IV Infusion Start Time 17:42 Med Admininistration (IV,IVP) Document 10/18/20 17:42 KM (Rec: 10/18/20 17:42 [id number]) Type of Administration Initial IV Push No Re-Assess: ED IV Start & Stop Times Document 10/18/20 17:56 (Rec: 10/18/20 17:57 [id number]) IV Infusion First Hour (1XONLY) (IVPB) IV Infusion Start Date 10/18/20 IV Infusion Start Time 17:00 IV Infusion Stop Date 10/18/20 IV Infusion Stop Time 17:57 IV Infusion Elapsed Time 57 Ceftriaxone Sodium/Dextrose (Rocephin 1 Gm-D5w 50 Ml Bag) 1 g in 50 mls @ 100 mls/hr IV STAT ONE Stop: 10/18/20 17:25 Last Infusion: 10/18/20 17:37 Dose: 0 mls/hr, 0 mls/hr Documented by: KADYORGAN Infusion/Titration Document 10/18/20 17:37 (Rec: 10/18/20 17:37 [id number]) Dosing & Rate Titration Dose 0 IV Rate 0 Increase/Decrease Infused Cumulative Dose 1 IV Intake Infusion Intake 50 Cumulative Intake (Bag) 50 Cumulative Intake (Rx) 50 Container Volume 0 Volume Adjustment/Waste 0 Admin: 10/18/20 17:02 Dose: 100 mls/hr, 100 mls/hr Documented by: NICOLÁS ED IV Start & Stop Times Document 10/18/20 17:02 (Rec: 10/18/20 17:05 [id number]) IV Infusion First Hour (1XONLY) (IVPB) IV Infusion Start Date 10/18/20 IV Infusion Start Time 17:05 IV Infusion Stop Date 10/18/20 IV Infusion Stop Time 17:35 IV Infusion Elapsed Time 30 Med Admininistration (IV,IVP) Document 10/18/20 17:02 (Rec: 10/18/20 17:05 [id number]) Type of Administration Initial IV Push No Infusion/Titration Document 10/18/20 17:02 (Rec: 10/18/20 17:05 [id number]) Dosing & Rate Titration Dose 100 IV Rate 100 Increase/Decrease Started IV Intake Container Volume 50 Volume Adjustment/Waste 0 Ceftriaxone Sodium/Dextrose (Rocephin 1 Gm-D5w 50 Ml Bag) Confirm Administered Dose 1 g in 50 mls @ ud IV .STK-MED ONE Stop: 10/18/20 17:00 Potassium Chloride (Potassium Chloride 20 Meq In Water 100ml) Confirm Administered Dose 100 mls @ ud IV .STK-MED ONE Stop: 10/18/20 17:40 Sodium Chloride (Sodium Chloride 0.9% 1000 Ml) Confirm Administered Dose 1,000 mls @ ud .ROUTE .STK-MED ONE Stop: 10/18/20 15:02 Sodium Chloride (Sodium Chloride 0.9% 500 Ml) Confirm Administered Dose 500 mls @ ud IV .STK-MED ONE Stop: 10/19/20 06:16 Potassium Chloride (Potassium Chloride 20 Meq In Water 100ml) 20 meq in 100 mls @ 50 mls/hr IV Q2H PJ Stop: 10/19/20 16:44 Last Admin: 10/19/20 16:06 Dose: 50 mls/hr Documented by: Admin: 10/19/20 13:50 Dose: 50 mls/hr Documented by: STACI Tramadol HCl (Ultram 50 Mg) 50 mg PO Q6H PRN PRN Reason: PAIN Stop: 11/17/20 21:01 Last Admin: 10/18/20 22:45 Dose: 50 mg Documented by: SANA Code(s): N39.0 - URINARY TRACT INFECTION, SITE NOT SPECIFIED (2) Altered mental status Current Visit: Yes Status: Acute Qualifiers: Altered mental status type: disorientation Qualified Code(s): R41.0 - Di sorientation, unspecified Code(s): R41.82 - ALTERED MENTAL STATUS, UNSPECIFIED (3) Dehydration Current Visit: Yes Status: Acute Code(s): E86.0 - DEHYDRATION (4) Sacral decubitus ulcer Current Visit: Yes Status: Acute Code(s): L89.159 - PRESSURE ULCER OF SACRAL REGION, UNSPECIFIED STAGE (5) Weakness Current Visit: Yes Status: Acute Code(s): R53.1 - WEAKNESS (6) Diabetes type 2, uncontrolled Current Visit: No Status: Acute Code(s): E11.65 - TYPE 2 DIABETES MELLITUS WITH HYPERGLYCEMIA
[2020-10-19] MEDS: ZOCOR 20MG PO SCH (22:24)
[2020-10-19] MEDS: Seroquel 100 MG PO SCH (22:25)
[2020-10-19] MEDS: Lantus Insulin SQ SCH (22:26)
[2020-10-20 07:30] VITALS: O2SAT 93
[2020-10-20] MEDS: HUMALOG SQ SCH (08:58)
[2020-10-20] MEDS ORDERED: Sodium Chloride 0.9% 1000 ML 1,000 ML IV SCH (09:30)
[2020-10-20] MEDS ORDERED: Levofloxacin 500 MG Tablet PO SCH (10:00)
[2020-10-20] MEDS: Wellbutrin SR 150 MG PO SCH (10:49)
[2020-10-20] MEDS: THERAGRAN MULTIVITAMIN PO SCH (10:49)
[2020-10-20] MEDS: Lasix 40 MG PO SCH (10:49)
[2020-10-20] MEDS: Vitamin C 500 MG PO SCH (10:49)
[2020-10-20] MEDS: FEOSOL 325 MG PO SCH (10:49)
[2020-10-20] MEDS: Klor Con 10 MEQ PO SCH (10:49)
[2020-10-20] MEDS: ECOTRIN 81 MG PO SCH (10:50)
[2020-10-20] MEDS: Keppra 250 MG PO SCH (10:50)
[2020-10-20] MEDS: VITAMIN D PO SCH (10:50)
[2020-10-20] MEDS: Lopressor 25MG Tab PO SCH (10:55)
[2020-10-20 12:05] VITALS: BP 131/76; PULSE 82
--- NOTE | 2020-10-20 21:41 | PCM.DS ---
Discharge Summary Date of Admission: 10/18/20 18:12 Admitting Physician: LEONA DONIS Primary Care Provider: ANGELA MAK Allergies Allergies Sulfa (Sulfonamide Antibiotics) [Sulfa(Sulfonamide Antibiotics)] Allergy (Mild, Verified 03/19/20 16:31) Rash Hospital Summary - Hospital Course Hospital Course: Chief Complaint Diagnosis weakness, fever for 2-3 days Allergies Allergy/AdvReac Type Severity Reaction Status Date / Time Sulfa (Sulfonamide Allergy Mild Rash Verified 03/19/20 16:31 Antibiotics) [Sulfa(Sulfonamide Antibiotics)] Vital Signs (Last 24 hours) Temp Pulse Resp BP Pulse Ox 10/20/20 12:00 98.1 F 82 18 131/76 93 L 10/20/20 07:30 98.1 F 81 18 105/70 93 L 10/20/20 03:54 98.3 F 88 20 109/62 92 L 10/19/20 23:46 98.1 F 76 18 111/69 94 L Home Medications Medication Instructions Recorded Confirmed Last Taken Type Ascorbic Acid [C-1000] 1 ea DAILY 10/18/20 10/18/20 10/18/20 07:00 History Cholecalciferol (Vitamin D3) 1 ea PO DAILY 10/18/20 10/18/20 10/18/20 07:00 History [Vitamin D3] Ferrous Sulfate [Feosol] 1 ea PO BID 10/18/20 10/18/20 10/18/20 07:00 History Insulin Aspart [Novolog] 1 unit SQ UD 10/18/20 10/18/20 Unknown History Multivitamin/Iron/Folic Acid 1 ea PO DAILY 10/18/20 10/18/20 10/18/20 07:00 History [Centrum Adults Tablet] Levofloxacin [Levaquin] 500 mg PO DAILY 6 Days #6 tablet 10/20/20 Unknown Rx Current Medications Discontinued Medications Generic Name Dose Route Start Last Admin Trade Name Freq PRN Reason Stop Dose Admin Acetaminophen 650 mg 10/19/20 06:26 Tylenol 325 Mg PO 11/18/20 06:25 Q4H PRN PRN PAIN Ascorbic Acid 1,000 mg 10/19/20 10:00 10/20/20 10:49 Vitamin C 500 Mg PO 11/18/20 09:59 1,000 mg DAILY PJ Administration Aspirin 81 mg 10/19/20 10:00 10/20/20 10:50 Ecotrin 81 Mg PO 11/18/20 09:59 81 mg DAILY PJ Administration Bupropion HCl 300 mg 10/18/20 22:00 10/20/20 10:49 Wellbutrin Sr 150 Mg PO 11/17/20 21:59 300 mg BID PJ Administration Cholecalciferol 2,000 unit 10/19/20 10:00 10/20/20 10:50 Vitamin D PO 11/18/20 09:59 2,000 unit DAILY PJ Administration Ferrous Sulfate 325 mg 10/18/20 22:00 10/20/20 10:49 Feosol 325 Mg PO 11/17/20 21:59 325 mg BID PJ Administration Furosemide 40 mg 10/19/20 10:00 10/20/20 10:49 Lasix 40 Mg PO 11/18/20 09:59 40 mg DAILY PJ Administration Sodium Chloride 1,000 mls @ 100 mls/hr 10/18/20 14:45 10/18/20 15:02 Sodium Chloride 0.9% 1000 Ml IV 11/17/20 14:44 100 mls/hr .Q10H PJ Administration Potassium Chloride 20 meq in 100 mls @ 50 mls/hr 10/18/20 17:00 10/18/20 17:42 Potassium Chloride 20 Meq In Water 100ml IV 10/18/20 20:59 50 mls/hr Q2H PJ Administration Ceftriaxone Sodium/Dextrose 1 g in 50 mls @ 100 mls/hr 10/18/20 16:56 10/18/20 17:37 Rocephin 1 Gm-D5w 50 Ml Bag IV 10/18/20 17:25 Infused STAT ONE Infusion Ceftriaxone Sodium/Dextrose Confirm 10/18/20 16:59 Rocephin 1 Gm-D5w 50 Ml Bag Administered 10/18/20 17:00 Dose 1 g in 50 mls @ ud IV .STK-MED ONE Potassium Chloride Confirm 10/18/20 17:39 Potassium Chloride 20 Meq In Water 100ml Administered 10/18/20 17:40 Dose 100 mls @ ud IV .STK-MED ONE Sodium Chloride Confirm 10/18/20 15:01 Sodium Chloride 0.9% 1000 Ml Administered 10/18/20 15:02 Dose 1,000 mls @ ud .ROUTE .STK-MED ONE Sodium Chloride 500 mls @ 50 mls/hr 10/19/20 05:00 10/19/20 09:17 Sodium Chloride 0.9% 500 Ml IV 11/18/20 04:59 50 mls/hr .Q10H PJ Administration Sodium Chloride Confirm 10/19/20 06:15 Sodium Chloride 0.9% 500 Ml Administered 10/19/20 06:16 Dose 500 mls @ ud IV .STK-MED ONE Potassium Chloride 20 meq in 100 mls @ 50 mls/hr 10/19/20 12:45 10/19/20 16:06 Potassium Chloride 20 Meq In Water 100ml IV 10/19/20 16:44 50 mls/hr Q2H PJ Administration Sodium Chloride 1,000 mls @ 50 mls/hr 10/20/20 09:30 Sodium Chloride 0.9% 1000 Ml IV 11/19/20 09:29 .Q20H PJ Insulin Glargine 10 unit 10/18/20 22:00 10/19/20 22:26 Lantus Insulin SQ 11/17/20 21:59 10 unit HS PJ Administration Insulin Human Lispro 5 unit 10/19/20 07:30 10/20/20 08:58 Humalog SQ 11/18/20 07:29 Not Given QDAC PJ Insulin Human Lispro 0 unit 10/19/20 06:45 Humalog SQ 11/18/20 06:44 UD PRN Levetiracetam 250 mg 10/18/20 22:00 10/20/20 10:50 Keppra 250 Mg PO 11/17/20 21:59 250 mg BID PJ Administration Levofloxacin 500 mg 10/20/20 10:00 10/20/20 10:49 Levofloxacin 500 Mg Tablet PO 10/20/20 10:01 500 mg DAILY PJ Administration Levofloxacin 250 mg 10/21/20 10:00 Levofloxacin 250mg Tablet PO 11/20/20 09:59 DAILY PJ Metoprolol Tartrate 25 mg 10/19/20 10:00 10/20/20 10:55 Lopressor 25mg Tab PO 11/18/20 09:59 25 mg DAILY PJ Administration Multivitamins Therapeutic 1 tab 10/19/20 10:00 10/20/20 10:49 Theragran Multivitamin PO 11/18/20 09:59 1 tab DAILY PJ Administration Polyethylene Glycol 17 gm 10/19/20 06:35 Miralax Powder 17gm Packet PO 11/18/20 06:34 BID PRN PRN CONSTIPATION Potassium Chloride 10 meq 10/18/20 22:00 10/20/20 10:49 Klor Con 10 Meq PO 11/17/20 21:59 10 meq BID PJ Administration Quetiapine Fumarate 100 mg 10/18/20 22:00 10/19/20 22:25 Seroquel 100 Mg PO 11/17/20 21:59 100 mg HS PJ Administration Rivaroxaban 15 mg 10/19/20 18:00 10/19/20 17:15 Xarelto 10 Mg Tablet PO 11/18/20 17:59 Not Given EVENING MEAL PJ Simvastatin 20 mg 10/18/20 22:00 10/19/20 22:24 Zocor 20mg PO 11/17/20 21:59 20 mg HS PJ Administration Tramadol HCl 50 mg 10/18/20 21:02 10/18/20 22:45 Ultram 50 Mg PO 11/17/20 21:01 50 mg Q6H PRN Administration PAIN Tramadol HCl 50 mg 10/18/20 23:30 Ultram 50 Mg PO 11/17/20 21:01 Q6H PRN PRN PAIN Intake & Output (Last 24 hours) 10/18/20 10/19/20 10/20/20 10/21/20 11:59 11:59 11:59 11:59 Intake Total 720 1060 120 Output Total 873 Balance -153 1060 120 Weight 87.1 kg Microbiology Results (Last 24 hours) 10/18/20 15:41 Urine, Void Urine Culture - Final Enterococcus Faecalis Laboratory Results (Last 24 hours) 10/20/20 10/20/20 10/19/20 07:20 07:20 22:26 POC Glucometer 105 105 153 H Orders (Last 24 hours) Category Date Time Status Discharge Routine Discharge 10/20/20 Ordered Discharge/Telephone Order Routine Discharge 10/20/20 Active POCT GLUCOSE Stat Lab 10/19/20 22:26 Completed POCT GLUCOSE Stat Lab 10/20/20 07:20 Completed POCT GLUCOSE Stat Lab 10/20/20 07:20 Completed Levofloxacin [Levofloxacin 250MG Tablet] Med 10/21/20 10:00 Discontinued 250 mg PO DAILY Levofloxacin [Levofloxacin 500 MG Tablet] Med 10/20/20 10:00 Discontinued 500 mg PO DAILY NaCl 0.9% 1000 ml [Sodium Chloride 0.9% 1000 ML] 1,000 Med 10/20/20 09:30 Discontinued ml IV 50 mls/hr Patient Care Notes (Last 24 hours) 10/20/20 13:57 Nursing Note by Tamra Betancourt report called to Diane, iv removed, all needs met and questions answered prior to discharge. pt discharged at this time and left voicemail for son regarding bud gerardo Initialized on 10/20/20 13:57 - END OF NOTE 10/20/20 11:17 Nursing Note by Tamra Betancourt blood pressure check at time of med pass was 122/69 Initialized on 10/20/20 11:17 - END OF NOTE 10/20/20 09:16 Pharmacy Note by Sanjeev Ivey Estimated creatinine clearance is 29ml/min. Will reduce Levaquin to 250mg dose per renal dosing policy. Initialized on 10/20/20 09:16 - END OF NOTE - Vitals & Intake/Output Vital Signs: Vital Signs Temperature 98.1 F 10/20/20 12:00 Pulse Rate 82 10/20/20 12:00 Respiratory Rate 18 10/20/20 12:00 Blood Pressure 131/76 10/20/20 12:00 O2 Sat by Pulse Oximetry 93 L 10/20/20 12:00 Intake & Output: Intake & Output 10/18/20 10/19/20 10/20/20 10/21/20 11:59 11:59 11:59 11:59 Intake Total 720 1060 120 Output Total 873 Balance -153 1060 120 Weight 87.1 kg - Lab Result Diagrams: 10/19/20 14:55 10/19/20 20:01 Lab Results-Last 24 Hrs: Lab Results-Last 24 Hours 10/19/20 10/20/20 10/20/20 Range/Units 22:26 07:20 07:20 POC Glucometer 153 H 105 105 (74 to 106) mg/dL Micro Results-Entire Visit: Microbiology 10/18/20 15:41 Urine Culture - Final Urine, Void Enterococcus Faecalis Accuchecks Date 10/20/20 Time 07:30 - Procedures and Test Procedures and Tests throughout Hospitalization: Therapy Orders & Screens 10/19/20 08:51 PT Eval & Treat (MD Order) ONCE Reason for Eval:: sacral wound Diagnosis: UTI, Wound Discharge Exam General Appearance: no apparent distress, alert Neurologic Exam: alert, oriented x 3, cooperative, normal mood/affect, nml cerebellar function, sensation nml, No motor deficits Eye Exam: PERRL, EOMI, eyes nml inspection Ears, Nose, Throat Exam: normal ENT inspection, pharynx normal, moist mucous membranes Neck Exam: normal inspection, non-tender, supple, full range of motion Respiratory Exam: normal breath sounds, lungs clear, No respiratory distress Cardiovascular Exam: regular rate/rhythm, normal heart sounds Gastrointestinal/Abdomen Exam: soft, No tenderness, No mass Pelvic Exam: deferred Rectal Exam: deferred Back Exam: normal inspection, normal range of motion, No CVA tenderness, No vertebral tenderness Extremity Exam: normal inspection, normal range of motion Skin Exam: normal color, warm, dry Wound Assessment: Skin/Wound Assessment Wound/Incision Assessment Start: 10/18/20 18:52 Text: Status: Active Freq: Q6H Protocol: Document 10/20/20 08:00 ALBER (Rec: 10/20/20 08:43 [facility] [id number]) Wound/Incision Assessment Posterior Coccyx Wound Assessment Shift Assessment Wound Type Pressure Ulcer Wound Stage Unstageable Dressing Status Dry & Intact Drainage Odor Mild Odor Surrounding Tissue Scurry Comment site remains packed with kerlix per orders Wound Photo Photo Taken No Date: 10/18/20 Comment: on chart noted Final Diagnosis/Problem List - Final Discharge Diagnosis/Problem (1) UTI (urinary tract infection) Status: Acute Code(s): N39.0 - URINARY TRACT INFECTION, SITE NOT SPECIFIED (2) Altered mental status Status: Resolved Code(s): R41.82 - ALTERED MENTAL STATUS, UNSPECIFIED (3) Dehydration Status: Resolved Code(s): E86.0 - DEHYDRATION (4) Sacral decubitus ulcer Status: Chronic Code(s): L89.159 - PRESSURE ULCER OF SACRAL REGION, UNSPECIFIED STAGE (5) Weakness Status: Resolved Code(s): R53.1 - WEAKNESS (6) Diabetes type 2, uncontrolled Status: Chronic Code(s): E11.65 - TYPE 2 DIABETES MELLITUS WITH HYPERGLYCEMIA - Discharge Discharge Date: 10/20/20 Disposition: [facility] Condition: Stable Prescriptions: New Levofloxacin [Levaquin] 500 mg PO DAILY 6 Days #6 tablet Continue Simvastatin 20 mg PO HS Polyethylene Glycol 3350 [Glycolax] 17 gm PO BID PRN PRN PRN Reason: Constipation Sodium Phosphate,[place]-Dibasic [Enema] 266 ml RC DAILY PRN PRN Reason: Constipation Acetaminophen 325 mg [Tylenol 325 mg] 650 mg PO Q4H PRN PRN PRN Reason: Pain Potassium Chloride 10 Meq Tab* [Klor Con 10 MEQ] 10 meq PO BID Aspirin [Aspirin EC] 81 mg PO DAILY #0 Rivaroxaban [Xarelto] 15 mg PO EVENING MEAL Bupropion HCl [Bupropion HCl ER] 300 mg PO BID Tramadol HCl [Ultram] 50 mg PO Q6H PRN PRN PRN Reason: Pain Quetiapine Fumarate [Seroquel Xr] 100 mg PO HS Metoprolol Tartrate 25 mg PO DAILY Furosemide 40 mg [Lasix 40 MG] 40 mg PO DAILY Insulin Glargine,Hum.rec.anlog [Lantus Solostar] 10 units SQ HS Insulin Lispro [Humalog Kwikpen U-100] 5 unit SQ DAILY Levetiracetam 250 MG [Keppra 250 MG] 250 mg PO BID #60 tablet Ascorbic Acid [C-1000] 1 ea DAILY Multivitamin/Iron/Folic Acid [Centrum Adults Tablet] 1 ea PO DAILY Ferrous Sulfate [Feosol] 1 ea PO BID Cholecalciferol (Vitamin D3) [Vitamin D3] 1 ea PO DAILY Insulin Aspart [Novolog] 1 unit SQ UD Additional Instructions: Resume previous [facility] orders Resume previous meds and add Levaquin 500mg for 6 more days pt had todays dose Accuchecks [facility] Physical Therapy and wound care Follow up with: ANGELA MAK [Primary Care Provider] -
[2020-10-21] MEDS ORDERED: Levofloxacin 250MG Tablet PO SCH (10:00)
== END 2020-10-20 13:55 ==
LOC: ED 14:10 → MED SURG 18:12
PROVIDERS: ADMIT General Practice; ATTEND General Practice
DX: N39.0 Urinary tract infection, site not specified (principal); R41.82 Altered mental status, unspecified; E11.65 Type 2 diabetes mellitus with hyperglycemia; L89.150 Pressure ulcer of sacral region, unstageable; E86.0 Dehydration; Z79.899 Other long term (current) drug therapy; R53.1 Weakness; I10 Essential (primary) hypertension; E78.00 Pure hypercholesterolemia, unspecified; Z86.73 Personal history of transient ischemic attack (TIA), and cerebral infarction without residual deficits; D64.9 Anemia, unspecified
CPT/HCPCS: 36000; 36415; 36430; 36600; 70450; 71045; 80053; 81001; 82375; 82803; 82947; 83735; 84132; 84484; 85014; 85018; 85025; 86850; 86900; 86901; 86922; 87077; 87086; 87186; 93005; 93041; 93268; 94760; 96360; 96361; 96365; 96367; 97161; 99285; G0378; P9016; P9612; J0696; J1817; J3480; A9270-GY